=== PATIENT | male | born 1955 | race Caucasian/White ===

== ENCOUNTER 2018-09-28 05:19 | Emergency (ER) | payer OTHER ==
[~2018-09-28] VITALS: Ht 182.9 cm; Wt 104.3 kg
[~2018-09-28 05:19] MED LIST: ASA81 MG PO; ATORVASTATIN CA20 MG PO; BUPROPION HCL150 M2 PO; EFFIENT10 MG PO; LEXAPRO20 MG PO; Z.0.METOPROLOL SUCC2 PO; Z.0.PLAVIX75 MG; Z.0.RAMIPRIL2.5 MG PO; Z.0.VYTORIN 10-201 E; [UNRECOGNIZED DRUG - OTHER]
--- OUTSIDE RECORDS SUMMARY | 2018-09-28 05:23 | XMS REPORT | Summary of Care ---
Author Author [facility] Organization [facility] Address Unknown Phone Unavailable Encounter GARTH Fowler(ANAMIKA) [id number] Date(s): 04/15/16 - 04/17/16 [facility] [address] [place] [address]- Discharge Disposition: Home Attending Physician: Loc Callahan MD Admitting Physician: Loc Callahan MD Referring Physician: Loc Callahan MD Vital Signs 1 2 3 Most recent to oldest [Reference Range]: 182.88 cm (04/15/16 10:08 AM) Height 98.2 DegF (04/17/16 8:00 AM) 98.2 DegF (04/17/16 4:00 AM) 98.1 DegF (04/16/16 4:00 AM) Temperature Oral [96.4-99.1 DegF] 136/87 mmHg (04/17/16 8:00 AM) 132/59 mmHg (04/17/16 4:00 AM) 142/54 mmHg *HI* (04/17/16 12:00 AM) Blood Pressure [90-140/60-90 mmHg] 18 BRMIN (04/17/16 8:00 AM) 18 BRMIN (04/17/16 4:00 AM) 18 BRMIN (04/17/16 12:00 AM) Respiratory Rate [14-20 BRMIN] 75 bpm (04/17/16 8:00 AM) Peripheral Pulse Rate [60-100 bpm] 103.007 kg (04/15/16 4:28 PM) 107.273 kg (04/15/16 10:08 AM) Weight 32.07 m2 (04/15/16 10:08 AM) Body Mass Index Problem List Condition Effective Dates Status Health Status Informant CHF - Congestive Active heart failure(Confirmed) Depression(Confirmed Active ) Heart Active disease(Confirmed) Hypertension(Confirm Active ed) Sleep Active apnea(Confirmed) Allergies, Adverse Reactions, Alerts Substance Reaction Severity Status NKDA Active Medications acetaminophen-hydrocodone 325 mg-5 mg oral tablet 1 tab, Route: PO, Drug Form: TAB, Dosing Weight 107.273, kg, Q4H, PRN Pain Score 4-6, Start date: 04/15/16 15:14:00 CDT, Duration: 30 day, Stop date: 05/15/16 1 5:13:00 CDT Notes: (Same as: [place] 325/5) Do not exceed 4gm/day of acetaminophen. Start Date: 04/15/16 Stop Date: 04/17/16 Status: Discontinued ALPRAZOLam 0.5 mg oral tablet 0.5 mg, 1 tab, Route: PO, Drug form: TAB, ONCE, Dosing Weight 107.273, kg, Prior ity: NOW, Start date: 04/15/16 10:10:00 CDT, Stop date: 04/15/16 10:10:00 CDT Notes: With food or milk(Same as: Xanax) Start Date: 04/15/16 Stop Date: 04/15/16 Status: Completed alteplase 4 mg + Sodium Chloride 0.9% IV 100 mL 100 mL, Rate: 12.5 ml/hr, Infuse over: 8 hr, Route: INTRAARTERIAL, Dosing Weight 107.273 kg, Total Volume: 100, Start date: 04/15/16 13:00:00 CDT, Duration: 36 hr, Stop date: 04/17/16 0:59:00 CDT Notes: Stable for 8 hours only(Same as: Activase) MEDICATION WASTE P roduct Size: 2 mgProduct Wasted: ___ mg Start Date: 04/15/16 Stop Date: 04/16/16 Status: Discontinued aspirin buffered 325 mg oral tablet 325 mg=1 tab, PO, Daily, 0 Refill(s) Start Date: 04/17/16 Stop Date: 04/17/16 Status: Deleted aspirin buffered 325 mg oral tablet 325 mg, 1 tab, Route: PO, Drug form: TAB, Daily, Dosing Weight 107.273, kg, Star t date: 04/16/16 9:00:00 CDT, Duration: 30 day, Stop date: 05/15/16 9:00:00 CDT Notes: Take with food. Start Date: 04/16/16 Stop Date: 04/17/16 Status: Discontinued atorvastatin 40 mg, PO, Daily, 0 Refill(s) Start Date: 04/15/16 Stop Date: 04/17/16 Status: Deleted atorvastatin 40 mg, 1 tab, Route: PO, Drug form: TAB, Daily, Dosing Weight 107.273, kg, Start date: 04/16/16 9:00:00 CDT, Duration: 30 day, Stop date: 05/15/16 9:00:00 CDT Notes: (Same as: Lipitor) Start Date: 04/16/16 Stop Date: 04/17/16 Status: Discontinued atorvastatin 40 mg oral tablet 40 mg=1 tab, PO, Daily, 0 Refill(s) Start Date: 04/17/16 Status: Ordered atropine 0.5 mg, 5 mL, Route: IVP, Drug form: INJ, PRN, PRN Bradycardia, Start date: 07/25 0:37:00 CDT, Duration: 30 day, Stop date: 05/17/16 0:36:00 CDT Start Date: 04/17/16 Stop Date: 04/17/16 Status: Discontinued Benadryl 50 mg, 2 tab, Route: PO, Drug form: TAB, ONCE, Dosing Weight 107.273, kg, Priori ty: NOW, Start date: 04/15/16 10:10:00 CDT, Stop date: 04/15/16 10:10:00 CDT Start Date: 04/15/16 Stop Date: 04/15/16 Status: Completed Dilaudid 1 mg, 1 mL, Route: IV, Drug form: INJ, Q3H, Dosing Weight 107.273, kg, PRN Pain Score 7-10, Start date: 04/15/16 12:40:00 CDT, Duration: 30 day, Stop date: 05/24 12:39:00 CDT Start Date: 04/15/16 Stop Date: 04/17/16 Status: Discontinued Dulcolax Laxative 10 mg, 1 supp, Route: AR, Drug form: SUPP, Daily, Dosing Weight 103.007, kg, PRN Constipation, Start date: 04/16/16 12:05:00 CDT, Duration: 30 day, Stop date: 0 05/16/16 12:04:00 CDT Notes: (Same As: Dulcolax, Bisco-Lax) Start Date: 04/16/16 Stop Date: 04/17/16 Status: Discontinued Effient 10 mg oral tablet 10 mg=1 tab, PO, Daily, # 30 tab, 0 Refill(s) Start Date: 04/17/16 Status: Ordered heparin 5,000 unit, 1 mL, Route: SUB-Q, Drug form: INJ, Q8H, Dosing Weight 103.007, kg, Start date: 04/17/16 0:00:00 CDT, Duration: 30 day, Stop date: 05/16/16 16:00:00 CDT Notes: porcine heparin Start Date: 04/17/16 Stop Date: 04/17/16 Status: Discontinued heparin additive 25,000 unit [14 unit/kg/hr] + Premix Diluent Dextrose 5% 500 mL 500 mL, Rate: 25.05 ml/hr, Infuse over: 20 hr, Route: IV, Dosing Weight 89.47 kg , Total Volume: 500 mL, Start date: 04/15/16 12:38:00 CDT, Duration: 30 day, Sto p date: 05/15/16 12:37:00 CDT Start Date: 04/15/16 Stop Date: 04/16/16 Status: Discontinued Lexapro 20 mg, 2 tab, Route: PO, Drug form: TAB, Daily, Dosing Weight 107.273, kg, Start date: 04/16/16 9:00:00 CDT, Stop date: 05/15/16 9:00:00 CDT Notes: (Same as: Lexapro) Start Date: 04/16/16 Stop Date: 04/17/16 Status: Discontinued metoprolol extended release 25 mg, 1 tab, Route: PO, Drug form: ERTAB, Daily, Start date: 04/16/16 9:00:00 C DT, Duration: 30 day, Stop date: 05/15/16 9:00:00 CDT Notes: (Same as: Toprol XL) Do Not Crush Start Date: 04/16/16 Stop Date: 04/17/16 Status: Discontinued morphine Sulfate 4 mg, 2 mL, Route: IVP, Drug form: INJ, Q2H, Dosing Weight 107.273, kg, PRN Pain Score 7-10, Start date: 04/15/16 15:14:00 CDT, Duration: 30 day, Stop date: 05/24 15:13:00 CDT Notes: (Same as:MORPhine Sulfate) Start Date: 04/15/16 Stop Date: 04/17/16 Status: Discontinued nitroglycerin 0.4 mg sublingual tablet 0.4 mg, 1 tab, Route: SL, Drug form: TAB, Q5Min, PRN Chest Pain, Start date: 07/25 0:37:00 CDT, Duration: 30 day, Stop date: 05/17/16 0:36:00 CDT Notes: (Same as:Nitroquick, Nitrostat)"Do Not Crush" Sublingual tablet Start Date: 04/17/16 Stop Date: 04/17/16 Status: Discontinued nitroglycerin SL Tab 0.4 mg, 1 tab, Route: SL, Drug form: TAB, Q5Min, Dosing Weight 107.273, kg, PRN Chest Pain, Start date: 04/15/16 15:14:00 CDT, Duration: 3 doses or times, Stop date: Limited # of times Notes: (Same as:Nitroquick, Nitrostat)"Do Not Crush" Sublingual tablet Start Date: 04/15/16 Stop Date: 04/17/16 Status: Discontinued normal saline 0.9% IV 1,000 mL 1,000 mL, Rate: 100 ml/hr, Infuse over: 10 hr, Route: IV, Dosing Weight 107.273 kg, Total Volume: 1,000, Start date: 04/15/16 10:09:00 CDT, Duration: 30 day, St op date: 05/15/16 10:08:00 CDT Start Date: 04/15/16 Stop Date: 04/17/16 Status: Discontinued ondansetron 4 mg, 1 tab, Route: PO, Drug form: TAB, Q8H, Dosing Weight 107.273, kg, PRN Naus ea & Vomiting, Start date: 04/15/16 15:14:00 CDT, Duration: 30 day, Stop date: 05/15/16 15:13:00 CDT Notes: (Same as: Zomarciano) Start Date: 04/15/16 Stop Date: 04/17/16 Status: Discontinued Pepto-Bismol 524 mg, 2 tab, Route: PO, Drug Form: CHEWTAB, Dosing Weight 103.007, kg, QID, AR N Indigestion, Start date: 04/16/16 12:06:00 CDT, Duration: 30 day, Stop date: 0 05/16/16 12:05:00 CDT Notes: (Same As: Pepto Bismol) Start Date: 04/16/16 Stop Date: 04/17/16 Status: Discontinued Plavix 75 mg, 1 tab, Route: PO, Drug form: TAB, Daily, Dosing Weight 107.273, kg, Start date: 04/16/16 9:00:00 CDT, Duration: 30 day, Stop date: 05/15/16 9:00:00 CDT Notes: (Same As: Plavix) Start Date: 04/16/16 Stop Date: 04/17/16 Status: Discontinued pneumococcal 23-valent vaccine 0.5 mL, Route: IM, Drug Form: INJ, Daily, Start date: 04/16/16 9:00:00 CDT, Dura tion: 1 doses or times, Stop date: 04/16/16 9:00:00 CDT Notes: (Same as: Pneumovax 23) Refrigerate Start Date: 04/16/16 Stop Date: 04/16/16 Status: Completed ramipril 2.5 mg, 1 cap, Route: PO, Drug form: CAP, Daily, Dosing Weight 107.273, kg, Star t date: 04/16/16 9:00:00 CDT, Duration: 30 day, Stop date: 05/15/16 9:00:00 CDT Notes: (Same as:Altace) Start Date: 04/16/16 Stop Date: 04/17/16 Status: Discontinued simethicone 160 mg, 2 tab, Route: CHEW, Drug form: CHEWTAB, TID, Dosing Weight 103.007, kg, PRN Gas, Start date: 04/16/16 12:06:00 CDT, Duration: 30 day, Stop date: 6 12:05:00 CDT Notes: (Same as: Mylicon) Start Date: 04/16/16 Stop Date: 04/17/16 Status: Discontinued simethicone 80 mg, 1 tab, Route: PO, Drug form: CHEWTAB, Q8H, Dosing Weight 103.007, kg, PRN Other -See Comment, Start date: 04/16/16 13:03:00 CDT, Duration: 30 day, Stop d ate: 05/16/16 13:02:00 CDT Notes: (Same as: Mylicon) Start Date: 04/16/16 Stop Date: 04/17/16 Status: Discontinued Sodium Chloride 0.9% (Bolus) IV 250 mL, 250 ml/hr, Infuse Over: 1 hr, Route: IV, 250, Drug form: INJ, ONCE, Dosi ng Weight 107.273 kg, Start date: 04/15/16 15:14:00 CDT, Duration: 1 doses or ti mes, Stop date: 04/15/16 15:14:00 CDT Start Date: 04/15/16 Stop Date: 04/15/16 Status: Completed Sodium Chloride 0.9% IV 750 mL 750 mL, Rate: 75 ml/hr, Infuse over: 10 hr, Route: IV, Dosing Weight 107.273 kg, Total Volume: 750, Start date: 04/15/16 15:14:00 CDT, Duration: 10 hr, Stop marcin e: 04/16/16 1:13:00 CDT Start Date: 04/15/16 Stop Date: 04/16/16 Status: Completed temazepam 15 mg, 1 cap, Route: PO, Drug form: CAP, Bedtime, Dosing Weight 107.273, kg, PRN Insomnia, Start date: 04/15/16 15:14:00 CDT, Duration: 30 day, Stop date: 05/15 15:13:00 CDT Notes: (Same As: Restoril) Start Date: 04/15/16 Stop Date: 04/17/16 Status: Discontinued Results ELECTROLYTES 1 2 3 Most recent to oldest [Reference Range]: 139 mEq/L (04/17/16 9:43 AM) 138 mEq/L (04/16/16 5:44 AM) 138 mEq/L (04/15/16 10:10 AM) Sodium Lvl [135-145 mEq/L] 3.9 mEq/L (04/17/16 9:43 AM) 4.1 mEq/L (04/16/16 5:44 AM) 4.1 mEq/L (04/15/16 10:10 AM) Potassium Lvl [3.5-5.1 mEq/L] 105 mEq/L (04/17/16 9:43 AM) 107 mEq/L (04/16/16 5:44 AM) 108 mEq/L (04/15/16 10:10 AM) Chloride Lvl [95-109 mEq/L] 25 mEq/L (04/17/16 9:43 AM) 21 mEq/L *LOW* (04/16/16 5:44 AM) 23 mEq/L *LOW* (04/15/16 10:10 AM) CO2 [24-32 mEq/L] 12.9 mEq/L (04/17/16 9:43 AM) 14.1 mEq/L (04/16/16 5:44 AM) 11.1 mEq/L (04/15/16 10:10 AM) AGAP [10.0-20.0 mEq/L] CHEM PANEL 1 2 3 Most recent to oldest [Reference Range]: 0.68 mg/dL (04/17/16 9:43 AM) 0.64 mg/dL (04/16/16 5:44 AM) 0.92 mg/dL (04/15/16 10:10 AM) Creatinine Lvl [0.50-1.40 mg/dL] 104 mL/min/1.73m2 1 *NA* (04/17/16 9:43 AM) 107 mL/min/1.73m2 2 *NA* (04/16/16 5:44 AM) 91 mL/min/1.73m2 3 *NA* (04/15/16 10:10 AM) eGFR 11 mg/dL (04/17/16 9:43 AM) 12 mg/dL (04/16/16 5:44 AM) 13 mg/dL (04/15/16 10:10 AM) BUN [7-22 mg/dL] 143 mg/dL *HI* (04/17/16 9:43 AM) 105 mg/dL *HI* (04/16/16 5:44 AM) 102 mg/dL *HI* (04/15/16 10:10 AM) Glucose Lvl [70-99 mg/dL] 8.1 mg/dL *LOW* (04/17/16 9:43 AM) 8.0 mg/dL *LOW* (04/16/16 5:44 AM) 8.7 mg/dL (04/15/16 10:10 AM) Calcium Lvl [8.5-10.5 mg/dL] 1Result Comment: The eGFR is calculated using the CKD-EPI formula. In most young, healthy individuals the eGFR will be >90 mL/min/1.73m2. The eGFR declines with age. An eGFR of 60-89 may be normal in some populations, particularly the elderly, for whom the CKD-EPI formula has not been extensively validated. Use of the eGFR is not recommended in the following populations: Individuals with unstable creatinine concentrations, including patients and those with serious co-morbid conditions. Patients with extremes in muscle mass or diet. The data above are obtained from the National Kidney Disease Education Program ( NKDEP) which additionally recommends that when the eGFR is used in patients with extremes of body mass index for purposes of drug dosing, the eGFR should be mul tiplied by the estimated BMI. 2Result Comment: The eGFR is calculated using the CKD-EPI formula. In most young, healthy individuals the eGFR will be >90 mL/min/1.73m2. The eGFR declines with age. An eGFR of 60-89 may be normal in some populations, particularly the elderly, for whom the CKD-EPI formula has not been extensively validated. Use of the eGFR is not recommended in the following populations: Individuals with unstable creatinine concentrations, including patients and those with serious co-morbid conditions. Patients with extremes in muscle mass or diet. The data above are obtained from the National Kidney Disease Education Program ( NKDEP) which additionally recommends that when the eGFR is used in patients with extremes of body mass index for purposes of drug dosing, the eGFR should be mul tiplied by the estimated BMI. 3Result Comment: The eGFR is calculated using the CKD-EPI formula. In most young, healthy individuals the eGFR will be >90 mL/min/1.73m2. The eGFR declines with age. An eGFR of 60-89 may be normal in some populations, particularly the elderly, for whom the CKD-EPI formula has not been extensively validated. Use of the eGFR is not recommended in the following populations: Individuals with unstable creatinine concentrations, including patients and those with serious co-morbid conditions. Patients with extremes in muscle mass or diet. The data above are obtained from the National Kidney Disease Education Program ( NKDEP) which additionally recommends that when the eGFR is used in patients with extremes of body mass index for purposes of drug dosing, the eGFR should be mul tiplied by the estimated BMI. LIPIDS 1 2 3 Most recent to oldest [Reference Range]: 5.07 (04/15/16 10:10 AM) CHD Risk [4.00-7.30] 147 mg/dL (04/15/16 10:10 AM) Chol [<=199 mg/dL] 130 mg/dL (04/15/16 10:10 AM) Trig [<=149 mg/dL] 29 mg/dL *LOW* (04/15/16 10:10 AM) HDL [>=61 mg/dL] 92 mg/dL (04/15/16 10:10 AM) LDL (Calculated) [<=99 mg/dL] 26 *NA* (04/15/16 10:10 AM) VLDL HEMATOLOGY 1 2 3 Most recent to oldest [Reference Range]: 9.3 K/CMM (04/17/16 9:43 AM) 9.6 K/CMM (04/17/16 9:43 AM) 10.4 K/CMM (04/16/16 5:44 AM) WBC [3.7-10.4 K/CMM] 5.32 M/CMM (04/17/16 9:43 AM) 5.32 M/CMM (04/17/16 9:43 AM) 5.70 M/CMM (04/16/16 5:44 AM) RBC [4.70-6.10 M/CMM] 15.7 g/dL (04/17/16 9:43 AM) 15.7 g/dL (04/17/16 9:43 AM) 16.9 g/dL (04/16/16 5:44 AM) Hgb [14.0-18.0 g/dL] 46.7 % (04/17/16 9:43 AM) 46.8 % (04/17/16 9:43 AM) 49.8 % (04/16/16 5:44 AM) Hct [42.0-54.0 %] 87.8 fL (6/9/16 9:43 AM) 88.0 fL (04/17/16 9:43 AM) 87.4 fL (04/16/16 5:44 AM) MCV [80.0-94.0 fL] 29.4 pg (04/17/16 9:43 AM) 29.5 pg (04/17/16 9:43 AM) 29.6 pg (04/16/16 5:44 AM) MCH [27.0-31.0 pg] 33.5 g/dL (04/17/16 9:43 AM) 33.6 g/dL (04/17/16 9:43 AM) 33.8 g/dL (04/16/16 5:44 AM) MCHC [32.0-36.0 g/dL] 13.5 % (04/17/16 9:43 AM) 13.4 % (04/17/16 9:43 AM) 13.6 % (04/16/16 5:44 AM) RDW [11.5-14.5 %] 119 K/CMM *LOW* (04/17/16 9:43 AM) 112 K/CMM *LOW* (04/17/16 9:43 AM) 125 K/CMM *LOW* (04/16/16 5:44 AM) Platelet [133-450 K/CMM] 9.0 fL (04/17/16 9:43 AM) 8.8 fL (04/17/16 9:43 AM) 8.4 fL (04/16/16 5:44 AM) MPV [7.4-10.4 fL] 79.0 % *HI* (04/17/16 9:43 AM) 73.4 % (04/16/16 5:44 AM) 62.2 % (04/15/16 6:50 PM) Segs [45.0-75.0 %] 13.4 % *LOW* (04/17/16 9:43 AM) 18.5 % *LOW* (04/16/16 5:44 AM) 29.7 % (04/15/16 6:50 PM) Lymphocytes [20.0-40.0 %] 6.9 % (04/17/16 9:43 AM) 6.6 % (04/16/16 5:44 AM) 6.0 % (04/15/16 6:50 PM) Monocytes [2.0-12.0 %] 0.4 % (04/17/16 9:43 AM) 0.8 % (04/16/16 5:44 AM) 1.1 % (04/15/16 6:50 PM) Eosinophils [0.0-4.0 %] 0.3 % (04/17/16 9:43 AM) 0.7 % (04/16/16 5:44 AM) 1.0 % (04/15/16 6:50 PM) Basophils [0.0-1.0 %] 7.4 K/CMM (04/17/16 9:43 AM) 7.7 K/CMM (04/16/16 5:44 AM) 5.6 K/CMM (04/15/16 6:50 PM) Segs-Bands # [1.5-8.1 K/CMM] 1.2 K/CMM (04/17/16 9:43 AM) 1.9 K/CMM (04/16/16 5:44 AM) 2.7 K/CMM (04/15/16 6:50 PM) Lymphocytes # [1.0-5.5 K/CMM] 0.6 K/CMM (04/17/16 9:43 AM) 0.7 K/CMM (04/16/16 5:44 AM) 0.5 K/CMM (04/15/16 6:50 PM) Monocytes # [0.0-0.8 K/CMM] 0.1 K/CMM (04/16/16 5:44 AM) 0.1 K/CMM (04/15/16 6:50 PM) 0.1 K/CMM (04/15/16 10:10 AM) Eosinophils # [0.0-0.5 K/CMM] 0.1 K/CMM (04/16/16 5:44 AM) 0.1 K/CMM (04/15/16 6:50 PM) 0.2 K/CMM (04/15/16 10:10 AM) Basophils # [0.0-0.2 K/CMM] 14.8 seconds *HI* (04/15/16 6:50 PM) PT [12.0-14.7 seconds] 1.13 (04/15/16 6:50 PM) INR [0.85-1.17] 57.5 seconds *HI* (04/16/16 5:44 AM) 59.6 seconds *HI* (04/16/16 2:10 AM) 93.2 seconds *HI* (04/15/16 6:50 PM) PTT [22.9-35.8 seconds] BACTERIAL - SEROLOGY 1 2 3 Most recent to oldest [Reference Range]: Negative (04/15/16 6:07 PM) MRSA by PCR Immunizations Not Given Vaccine Date Status Refusal Reason pneumococcal 23-valent vaccine 04/17/16 Not Given Patient Refuses Procedures Procedure Date Related Diagnosis Body Site Arthroscopic knee operation CABG - Coronary artery bypass graft Cardiac catheterization, left heart1 Extraction of wisdom tooth Foot incision ICD - Internal cardiac defibrillator procedure 1with stent x 4 last nov 2014 Social History Social History Type Response Smoking Status Current every day smoker; Type: Cigarettes; Tobacco use per day: 20; Previous treatment: None; Ready to change: No; Concerns about tobacco use in household: No; Exposure to Tobacco Smoke smokes daily; Cigarette Smoking Last 365 Days Yes; Reg Smoking Cessation Counseling Yes Assessment and Plan Extracted from: Title: Clinical Document Author: Crystal Maxwell Date: 04/17/16 Pulmonary/Critical Care Medicine progess note Crystal Maxwell MS AGACNP-BC SUBJECTIVE: seen and examined, pt awake and preparing for discharge, no s/sdistress, uses cpap at home events and records noted OBJECTIVE: ROS: Denies N/V/D, CP or SOB remainder of 14 point assessment otherwise negative ASSESSMENT & EXAM: NEURO: alert and oriented, no s/s distress HEENT:normocephalic,atraumatic, PERRLA NECK: supple, no JVD appreciated PULM: symmetrical expansion, CTA CV: RRR, S1,S2, no murmurs, gallops or clicks ascultated ABD: Soft, nontender, (+)bowel sounds EXTREMITIES: no edema, pulses palpable INTEGUMENTARY: intact, no rashes DIAGNOSES & PROBLEMS: PAD w/ critical limb ischemia of RLE: s/p thrombolysis and stent placement Abd pain CAD h/o CABG ICM CORINE tobacco abuse PLAN & TREATMENT: pt on dual antiplatelet therapy, statin BB and KAYLENE simethicone prn for abd discomfort ABD CT benign smolking cessationrecommended advised pt to follow -up with own pulmonolgist VitalsTmp(F)[id number] 04/17 08:8.682175/260020--- 04/17 04:0098.709288/[id number]--- 04/17 00:0097.700810/5418--- 2.0L/m 04/16 23:42----64-----1896--- 04/16 23:00----[id number]--- 24 Hr Tmax: 98.2F (36.78c) at 04/17 08:00Vital Signs are the last 5 in the past 48 hours. DateWt(kg)Wt(lb)Ht(cm)Ht(in)Method 04/15 (initial)107.27 236.00Measured 04/15182.88 72.00Stated Lines, Tubes, and Drains: 04/15/2016 20:00 Peripheral Lines: Antecubital Left Over the needle catheter 04/15/2016 16:00 Arterial Lines: Single lumen Femoral artery Left 3 gauge I&ORecordInOutBal 04/924hr Tot 240 700 -460 04/824hr Tot 2353 1700 653 Surgical Procedures: (no date)Atherectomy/CSI Rt Lower Extremity [id number](primary surgeon unspecified) (no date)ABDOMINAL ANGIO/ FEM-POP/ ILIAC TOOL MAKER APPRENTICE [id number](primary surgeon unspecified) 04/17/2016 08:00 SpO2 [id number] 04/17/2016 00:00 Oxygen Therapy ModeNasal cannula Scheduled Meds: None Unscheduled Meds: None Continuous Infusions: None Labs (Last four charted values) WBC 9.6(APR 17)9.3(APR 17)10.4(APR 16)9.1(APR 15) Hgb 15.7(APR 17)15.7(APR 17)16.9(APR 16)16.8(APR 15) Hct 46.7(APR 17)46.8(APR 17)49.8(APR 16)51.6(MARCELO 07) Plt L 119(APR 09)L 112(APR 09)L 125(APR 08)137(APR 07) Na 139(APR 09)138(APR 08)138(APR 07) K 3.9(APR 09)4.1(APR 08)4.1(APR 07) CO2 25(APR 09)L 21(APR 08)L 23(APR 07) Cl 105(APR 09)107(APR 08)108(APR 07) Cr 0.68(APR 17)0.64(APR 16)0.92(APR 15) BUN 11(APR 17)12(APR 16)13(APR 15) Glucose Random H 143(APR 17)H 105(APR 08)H 102(APR 07) Ca L 8.1(APR 17)L 8.0(APR 16)8.7(APR 15) PT H 14.8(APR 15) INR 1.13(APR 15) PTT H 57.5(APR 16)H 59.6(APR 16)H 93.2(APR 15) Addendum I have seen and examined the patient with the TEST RIDER and the multidisciplinary team, I have by reviewed labs, radiological test, overnight events. I agree with the note Link, followup with Dr Asia Morley MD on 04/17/2016 17:52 Extracted from: Title: ICU care Author: Shae Pérez DO Date: 04/16/16 Chief complaint: leg ischemia HPI: 61 y.o. male presented with sevral days of right lower extremity pain.The patient thought that he had sprained his calf, but also admitted to his toes turning blue and his leg feeling cold. The patient was found to have acute artreial occlusion and was admitted for intervetion. Yesterday he went for an arteriogram and received overnight TPA. He went for a stent today. He complained of some abdominal pain post procedure. CT abd and pelvis did not reveal any retroperitoneal bleeding. Cramping was relieved with simethicone. Patient has a significant of CAD with CABG and ICM. PMHx: CAD, dyslipidemia, ICM, PVD PSHx: mary, CABG, AICD, knee replacement Famhx: both parents from multiple myeloma Sochx: active tobacco use, denies exessive etoh or drugs Meds: reviewed and documented in the EMR Allergies: NKDA ROS: all reviewed and negative besides pertinent positives documented in the HPI Physical exam VitalsTmp(F)[id number] 04/16 19:00----[id number]--- 04/16 18:00----[id number]--- 04/16 17:00----[id number]--- 04/16 16:0097.947793/981048--- 04/16 15:00----[id number]--- 24 Hr Tmax: 98.1F (36.72c) at 04/16 04:00Vital Signs are the last 5 in the past 48 hours. Gen: NAD HEENT: no JVD, neck supple Neuro: AOX3, nonlateralzing Cardio: [id number] Pulm: LCTAB Abd: S/NT/ND Ext: no cyanosis or edema, palpable pulses b/l lower extremities 24hr Labs 04/16 0544 Glucose Lzm170 H BUN12 Creatinine Lvl0.64 Sodium Jna868 Potassium Lvl4.1 Chloride Joa248 CO221 L AGAP14.1 Calcium Lvl8.0 L aYXA823 WBC10.4 RBC5.70 Hgb16.9 Hct49.8 MCV87.4 MCH29.6 MCHC33.8 RDW13.6 Onbacpxb024 L MPV8.4 Segs73.4 Monocytes6.6 Gdtkgvwmmlj04.5 L Eosinophils0.8 Basophils0.7 Segs-Bands #7.7 Lymphocytes #1.9 Monocytes #0.7 Eosinophils #0.1 Basophils #0.1 PTT57.5 H 04/16 0210 PTT59.6 H 04/15 1807 MRSA by PCRNegative Impression 1.Peripheral arterial disease w/ critical limb ischemia of the RLE s/p thrombolysis and stent placement 2. Abd pain 3. CAD h/o CABG 4. ICM Plan -cont ICU care -dual antiplatelet therapy, statin, Bblocker, KAYLENE -prophylactic measures -simethicone prn for abd cramping -anticipate transfer to [facility] in am CCM time exclusive of procedures is 36 min
--- OUTSIDE RECORDS SUMMARY | 2018-09-28 05:23 | XMS REPORT | Summary of Care ---
Author Organization Unknown Address Unknown Phone Unavailable Encounter HQ Annabel_katarina(ANAMIKA) [id number] Date(s): 03/16/15 - 03/17/15 Formerly [facility] [address] [place] [address]- Discharge Disposition: Home Physician Attending: Rachel Grissom MD Physician Admitting: Rachel Grissom MD Physician_Referring: Rachel Grissom MD Vital Signs 1 2 3 Most recent to oldest [Reference Range]: 182.88 cm (03/16/15 10:46 PM) 182.88 cm (03/16/15 2:24 PM) Height 98.5 DegF (03/17/15 11:56 AM) 98.4 DegF (03/17/15 7:39 AM) 98.0 DegF (03/17/15 4:00 AM) Temperature Oral [96.4-99.1 DegF] 146/84 mmHg *HI* (03/17/15 11:56 AM) 137/74 mmHg (03/17/15 7:39 AM) 130/82 mmHg (03/17/15 4:00 AM) Blood Pressure [90-140/60-90 mmHg] 20 BRMIN (03/17/15 11:56 AM) 16 BRMIN (03/17/15 8:47 AM) 18 BRMIN (03/17/15 7:39 AM) Respiratory Rate [14-20 BRMIN] 66 bpm (03/17/15 11:56 AM) 60 bpm (03/17/15 7:39 AM) 78 bpm (03/17/15 4:00 AM) Peripheral Pulse Rate [60-100 bpm] 104.545 kg (03/16/15 10:46 PM) 105 kg (03/16/15 2:24 PM) Weight 31.26 m2 (03/16/15 10:46 PM) 31.39 m2 (03/16/15 2:24 PM) Body Mass Index Problem List Condition Effective Dates Status Health Status Informant Depression(Confirmed Active ) Heart Active disease(Confirmed) Hypertension(Confirm Active ed) Sleep Active apnea(Confirmed) Allergies, Adverse Reactions, Alerts Substance Reaction Severity Status NKDA Active Medications acetaminophen 325 mg, 1 tab, Route: PO, Drug form: TAB, Q4H, Dosing Weight 105, kg, PRN Pain S core 4-6, Start date: 03/16/15 17:04:00, Duration: 30 day, Stop date: 04/15/15 1 7:03:00 Notes: Do not exceed 4 gm/day. (Same as: Tylenol) Start Date: 03/16/15 Stop Date: 03/17/15 Status: Discontinued acetaminophen-codeine #3 1 tab, Route: PO, Drug Form: TAB, Dosing Weight 105, kg, Q4H, PRN Pain Score 4-6 , Start date: 03/16/15 17:04:00, Duration: 30 day, Stop date: 04/15/15 17:03:00 Notes: Do not exceed 4gm/day of acetaminophen. (Same as: Tylenol with Codeine # 3) Start Date: 03/16/15 Stop Date: 03/17/15 Status: Discontinued aspirin buffered 325 mg oral tablet 325 mg, 1 tab, Route: PO, Drug form: TAB, Daily, Dosing Weight 105, kg, Start da te: 03/17/15 9:00:00, Duration: 30 day, Stop date: 04/15/15 9:00:00 Notes: Take with food. Start Date: 03/17/15 Stop Date: 03/17/15 Status: Discontinued aspirin buffered 325 mg oral tablet 325 mg=1 tab, PO, Daily, # 30 tab, 0 Refill(s) Start Date: 03/15/15 Stop Date: 04/14/15 Status: Ordered atropine 0.5 mg, 5 mL, Route: IVP, Drug form: INJ, PRN, PRN Bradycardia, Start date: 06/23 19:57:00, Duration: 30 day, Stop date: 04/15/15 19:56:00 Start Date: 03/16/15 Stop Date: 03/17/15 Status: Discontinued ezetimibe-simvastatin 08/18 1 tab, Route: PO, Dosing Weight 105, kg, Bedtime, Start date: 03/16/15 21:00:00, Duration: 30 day, Stop date: 04/14/15 21:00:00 Start Date: 03/16/15 Stop Date: 03/16/15 Status: Deleted Lexapro 20 mg, 1 tab, Route: PO, Drug form: TAB, Daily, Dosing Weight 105, kg, Start marcin e: 03/17/15 9:00:00, Duration: 30 day, Stop date: 04/15/15 9:00:00 Notes: (Same as: Lexapro) Start Date: 03/17/15 Stop Date: 03/17/15 Status: Discontinued Lexapro 20 mg oral tablet 20 mg=1 tab, PO, Daily, # 30 tab, 0 Refill(s) Start Date: 03/15/15 Status: Ordered metoprolol 25 mg oral tablet, extended release 25 mg, PO, Daily, # 30 tab, 0 Refill(s) Start Date: 03/15/15 Stop Date: 04/14/15 Status: Ordered nitroglycerin 0.4 mg sublingual tablet 0.4 mg, 1 tab, Route: SL, Drug form: TAB, Q5Min, PRN Chest Pain, Start date: 06/23 19:57:00, Duration: 30 day, Stop date: 04/15/15 19:56:00 Notes: (Same as:Nitroquick, Nitrostat)"Do Not Crush" Sublingual tablet Start Date: 03/16/15 Stop Date: 03/17/15 Status: Discontinued ondansetron 4 mg, 2 mL, Route: IVP, Drug form: INJ, Q8H, Dosing Weight 105, kg, PRN Nausea & Vomiting, Start date: 03/16/15 17:04:00, Duration: 30 day, Stop date: 04/15/15 17:03:00 Notes: (Same as: Karina) MEDICATION WASTE Product Size: 4 mgProduct Was luis alberto: ___ mg Start Date: 03/16/15 Stop Date: 03/17/15 Status: Discontinued Plavix 75 mg, 1 tab, Route: PO, Drug form: TAB, Daily, Dosing Weight 105, kg, Start marcin e: 03/17/15 9:00:00, Duration: 30 day, Stop date: 04/15/15 9:00:00 Notes: (Same As: Plavix) Start Date: 03/17/15 Stop Date: 03/17/15 Status: Discontinued Plavix 75 mg oral tablet 75 mg=1 tab, PO, Daily, # 30 tab, 0 Refill(s) Start Date: 03/15/15 Status: Ordered ramipril 2.5 mg, 1 cap, Route: PO, Drug form: CAP, Daily, Dosing Weight 105, kg, Start da te: 03/17/15 9:00:00, Duration: 30 day, Stop date: 04/15/15 9:00:00 Notes: (Same as:Altace) Start Date: 03/17/15 Stop Date: 03/17/15 Status: Discontinued ramipril 2.5 mg oral capsule 2.5 mg=1 cap, PO, Daily, # 30 cap, 0 Refill(s) Start Date: 03/15/15 Status: Ordered Toprol-XL 25 mg oral tablet, extended release 25 mg, 1 tab, Route: PO, Drug form: ERTAB, Daily, Start date: 03/17/15 9:00:00, Duration: 30 day, Stop date: 04/15/15 9:00:00 Notes: (Same as: Toprol XL) Do Not Crush Start Date: 03/17/15 Stop Date: 03/17/15 Status: Discontinued vancomycin 1 gm, 200 mL, Route: IVPB, Drug form: INJ, ONCE, Dosing Weight 105, kg, Start da te: 03/16/15 17:04:00, Stop date: 03/16/15 17:04:00 Start Date: 03/16/15 Stop Date: 03/16/15 Status: Completed Vytorin 10 mg-20 mg oral tablet 1 tab, PO, Daily, # 30 tab, 0 Refill(s) Start Date: 03/15/15 Status: Ordered Zetia 10 mg, 1 tab, Route: PO, Drug form: TAB, Bedtime, Start date: 03/16/15 21:00:00, Duration: 30 day, Stop date: 04/14/15 21:00:00 Notes: (Same as: Zetia) Start Date: 03/16/15 Stop Date: 03/17/15 Status: Discontinued Zocor 10 mg, 1 tab, Route: PO, Drug form: TAB, Bedtime, Start date: 03/16/15 21:00:00, Duration: 30 day, Stop date: 04/14/15 21:00:00 Notes: (Same as: Zocor) Start Date: 03/16/15 Stop Date: 03/17/15 Status: Discontinued Results ELECTROLYTES Most recent to 1 oldest [Reference Range]: Sodium Lvl [135-145 141 mEq/L mEq/L] (03/16/15 2:32 PM) Potassium Lvl 4.0 mEq/L [3.5-5.1 mEq/L] (03/16/15 2:32 PM) Chloride Lvl [95-109 109 mEq/L mEq/L] (03/16/15 2:32 PM) CO2 [24-32 mEq/L] 26 mEq/L (03/16/15 2:32 PM) AGAP [10.0-20.0 10.0 mEq/L mEq/L] (03/16/15 2:32 PM) CHEM PANEL Most recent to 1 oldest [Reference Range]: Creatinine Lvl 0.8 mg/dL [0.5-1.4 mg/dL] (03/16/15 2:32 PM) eGFR 99 mL/min/1.73m2 1 *NA* (03/16/15 2:32 PM) BUN [7-22 mg/dL] 12 mg/dL (03/16/15 2:32 PM) Glucose Lvl [70-99 95 mg/dL 2 mg/dL] (03/16/15 2:32 PM) Calcium Lvl 8.6 mg/dL [8.5-10.5 mg/dL] (03/16/15 2:32 PM) 1Result Comment: The eGFR is calculated using [...] be mul tiplied by the estimated BMI. 2Interpretive Data: Adult reference range values reflect the clinical guidelines of the [place] [employer]. HEMATOLOGY Most recent to 1 oldest [Reference Range]: WBC [3.7-10.4 K/CMM] 7.0 K/CMM (03/16/15 2:32 PM) RBC [4.70-6.10 5.30 M/CMM M/CMM] (03/16/15 2:32 PM) Hgb [14.0-18.0 g/dL] 16.7 g/dL (03/16/15 2:32 PM) Hct [42.0-54.0 %] 48.5 % (03/16/15 2:32 PM) MCV [80.0-94.0 fL] 91.5 fL (03/16/15 2:32 PM) MCH [27.0-31.0 pg] 31.5 pg *HI* (03/16/15 2:32 PM) MCHC [32.0-36.0 34.4 g/dL g/dL] (03/16/15 2:32 PM) RDW [11.5-14.5 %] 12.9 % (03/16/15 2:32 PM) Platelet [133-450 124 K/CMM K/CMM] *LOW* (03/16/15 2:32 PM) MPV [7.4-10.4 fL] 8.1 fL (03/16/15 2:32 PM) Segs [45.0-75.0 %] 60.7 % (03/16/15 2:32 PM) Lymphocytes 30.4 % [20.0-40.0 %] (03/16/15 2:32 PM) Monocytes [2.0-12.0 6.5 % %] (03/16/15 2:32 PM) Eosinophils [0.0-4.0 1.4 % %] (03/16/15 2:32 PM) Basophils [0.0-1.0 1.0 % %] (03/16/15 2:32 PM) Segs-Bands # 4.3 K/CMM [1.5-8.1 K/CMM] (03/16/15 2:32 PM) Lymphocytes # 2.1 K/CMM [1.0-5.5 K/CMM] (03/16/15 2:32 PM) Monocytes # [0.0-0.8 0.5 K/CMM K/CMM] (03/16/15 2:32 PM) Eosinophils # 0.1 K/CMM [0.0-0.5 K/CMM] (03/16/15 2:32 PM) Basophils # [0.0-0.2 0.1 K/CMM K/CMM] (03/16/15 2:32 PM) PT [12.0-14.7 13.2 seconds seconds] (03/16/15 2:32 PM) INR [0.85-1.17] 1.00 3 (03/16/15 2:32 PM) PTT [22.9-35.8 31.0 seconds 4 seconds] (03/16/15 2:32 PM) 3Interpretive Data: RECOMMENDED RANGES FOR PROTIME INR: 2.0-3.0 for most medical and surgical thromboembolic states. 2.5-3.5 for artificial heart valves and recurrent embolism. INR SHOULD BE USED ONLY FOR PATIENTS ON STABLE ANTICOAGULANT THERAPY. 4Interpretive Data: Heparin Therapeutic Range: 57 - 92 Seconds Immunizations No data available for this section Procedures Procedure Date Related Diagnosis Body Site Arthroscopic knee operation CABG - Coronary artery bypass graft Cardiac catheterization, left heart1 Extraction of wisdom tooth Foot incision 1with stent x 4 last nov 2014 Social History Social History Type Response Smoking Status Current every day smoker; Exposure to Tobacco Smoke smokes daily; Cigarette Smoking Last 365 Days Yes; Reg Smoking Cessation Counseling No Assessment and Plan No data available for this section
--- OUTSIDE RECORDS SUMMARY | 2018-09-28 05:23 | XMS REPORT | Continuity of Care Document ---
Author Author [facility] Interface Address Unknown Phone Unavailable Problems Problem Status Onset Date Classification Date Reported Comments Source I73.9 Active 2016 [facility] I73.9 Active 2016 [facility] 414.8/428.22/462.52/414.02 Active 03/06/2015 [facility] SYNCOPE AND BRADYCARDIA Active 03/06/2015 [facility] 414.8/428.22/462.52/414.02 Active 03/06/2015 [facility] Depression Active Problem 04/20/2016 [facility] Heart disease Active Problem 04/20/2016 [facility] Hypertension Active Problem 04/20/2016 [facility] Sleep apnea Active Problem 04/20/2016 [facility] CHF - Congestive heart failure Active Problem 04/20/2016 [facility] PERIPHERAL VASCULAR DISEASE, UNSPECIFIED Active [facility] Medications Medication Details Route Status Patient Instructions Ordering Provider Order Date Source atorvastatin 40 mg oral tablet 40 mg=1 tab, PO, Daily, 0 Refill(s) Active 04/17/2016 [facility] Aspirin 325 MG Oral Tablet 325 mg=1 tab, PO, Daily, 0 Refill(s) Inactive 04/17/2016 [facility] prasugrel 10 MG Oral Tablet [Effient] 10 mg=1 tab, PO, Daily, # 30 tab, 0 Refill(s) Active 04/17/2016 [facility] nitroglycerin 0.4 mg sublingual tablet 0.4 mg, 1 tab, Route: SL, Drug form: TAB, Q5Min, PRN Chest Pain, Start date: 04/17/16 0:37:00 CDT, Duration: 30 day, Stop date: 05/17/16 0:36:00 CDTNotes: (Same as:Nitroquick, Nitrostat) "Do Not Crush" Sublingual tablet Inactive 04/17/2016 [facility] atropine 0.5 mg, 5 mL, Route: IVP, Drug form: INJ, PRN, PRN Bradycardia, Start date: 04/17/16 0:37:00 CDT, Duration: 30 day, Stop date: 05/17/16 0:36:00 CDT Inactive 04/17/2016 [facility] heparin 5,000 unit, 1 mL, Route: SUB-Q, Drug form: INJ, Q8H, Dosing Weight 103.007, kg, Start date: 04/17/16 0:00:00 CDT, Duration: 30 day, Stop date: 05/16/16 16:00:00 CDTNotes: porcine heparin Inactive 04/17/2016 [facility] Simethicone 80 mg, 1 tab, Route: PO, Drug form: CHEWTAB, Q8H, Dosing Weight 103.007, kg, PRN Other -See Comment, Start date: 04/16/16 13:03:00 CDT, Duration: 30 day, Stop date: 05/16/16 13:02:00 CDTNotes: (Same as: Mylicon) No Longer Active 04/16/2016 [facility] Simethicone 160 mg, 2 tab, Route: CHEW, Drug form: CHEWTAB, TID, Dosing Weight 103.007, kg, PRN Gas, Start date: 04/16/16 12:06:00 CDT, Duration: 30 day, Stop date: 05/16/16 12:05:00 CDTNotes: (Same as: Mylicon) No Longer Active 04/16/2016 [facility] Pepto-bismol 524 mg, 2 tab, Route: PO, Drug Form: CHEWTAB, Dosing Weight 103.007, kg, QID, PRN Indigestion, Start date: 04/16/16 12:06:00 CDT, Duration: 30 day, Stop date: 05/16/16 12:05:00 CDTNotes: (Same As: Pepto Bismol) No Longer Active 04/16/2016 [facility] Dulcolax Laxative 10 mg, 1 supp, Route: AK, Drug form: SUPP, Daily, Dosing Weight 103.007, kg, PRN Constipation, Start date: 04/16/16 12:05:00 CDT, Duration: 30 day, Stop date: 05/16/16 12:04:00 CDTNotes: (Same As: Dulcolax, Bisco-Lax) No Longer Active 04/16/2016 [facility] pneumococcal capsular polysaccharide type 1 vaccine / pneumococcal capsular polysaccharide type 10A vaccine / pneumococcal capsular polysaccharide type 11A vaccine / pneumococcal capsular polysaccharide type 12F vaccine / pneumococcal capsular polysacchar 0.5 mL, Route: IM, Drug Form: INJ, Daily, Start date: 04/16/16 9:00:00 CDT, Duration: 1 doses or times, Stop date: 04/16/16 9:00:00 CDTNotes: (Same as: Pneumovax 23) Refrigerate Inactive 04/16/2016 [facility] Aspirin 325 MG Oral Tablet 325 mg, 1 tab, Route: PO, Drug form: TAB, Daily, Dosing Weight 107.273, kg, Start date: 04/16/16 9:00:00 CDT, Duration: 30 day, Stop date: 05/15/16 9:00:00 CDTNotes: Take with food. No Longer Active 04/16/2016 [facility] Ramipril 2.5 mg, 1 cap, Route: PO, Drug form: CAP, Daily, Dosing Weight 107.273, kg, Start date: 04/16/16 9:00:00 CDT, Duration: 30 day, Stop date: 05/15/16 9:00:00 CDTNotes: (Same as:Altace) No Longer Active 04/16/2016 [facility] metoprolol extended release 25 mg, 1 tab, Route: PO, Drug form: ERTAB, Daily, Start date: 04/16/16 9:00:00 CDT, Duration: 30 day, Stop date: 05/15/16 9:00:00 CDTNotes: (Same as: Toprol XL) Do Not Crush No Longer Active 04/16/2016 [facility] Lexapro 20 mg, 2 tab, Route: PO, Drug form: TAB, Daily, Dosing Weight 107.273, kg, Start date: 04/16/16 9:00:00 CDT, Stop date: 05/15/16 9:00:00 CDTNotes: (Same as: Lexapro) No Longer Active 04/16/2016 [facility] Plavix 75 mg, 1 tab, Route: PO, Drug form: TAB, Daily, Dosing Weight 107.273, kg, Start date: 04/16/16 9:00:00 CDT, Duration: 30 day, Stop date: 05/15/16 9:00:00 CDTNotes: (Same As: Plavix) No Longer Active 04/16/2016 [facility] atorvastatin 40 mg, 1 tab, Route: PO, Drug form: TAB, Daily, Dosing Weight 107.273, kg, Start date: 04/16/16 9:00:00 CDT, Duration: 30 day, Stop date: 05/15/16 9:00:00 CDTNotes: (Same as: Lipitor) No Longer Active 04/16/2016 [facility] Temazepam 15 mg, 1 cap, Route: PO, Drug form: CAP, Bedtime, Dosing Weight 107.273, kg, PRN Insomnia, Start date: 04/15/16 15:14:00 CDT, Duration: 30 day, Stop date: 05/15/16 15:13:00 CDTNotes: (Same As: Restoril) No Longer Active 04/15/2016 [facility] Ondansetron 4 mg, 1 tab, Route: PO, Drug form: TAB, Q8H, Dosing Weight 107.273, kg, PRN Nausea & Vomiting, Start date: 04/15/16 15:14:00 CDT, Duration: 30 day, Stop date: 05/15/16 15:13:00 CDTNotes: (Same as: Zofran) No Longer Active 04/15/2016 [facility] Acetaminophen 325 MG / Hydrocodone Bitartrate 5 MG Oral Tablet 1 tab, Route: PO, Drug Form: TAB, Dosing Weight 107.273, kg, Q4H, PRN Pain Score 4-6, Start date: 04/15/16 15:14:00 CDT, Duration: 30 day, Stop date: 05/15/16 15:13:00 CDTNotes: (Same as: [place] 325/5) Do not exceed 4gm/day of acetaminophen. No Longer Active 04/15/2016 [facility] Morphine 4 mg, 2 mL, Route: IVP, Drug form: INJ, Q2H, Dosing Weight 107.273, kg, PRN Pain Score 7-10, Start date: 04/15/16 15:14:00 CDT, Duration: 30 day, Stop date: 05/15/16 15:13:00 CDTNotes: (Same as:MORPhine Sulfate) No Longer Active 04/15/2016 [facility] Nitroglycerin 0.4 mg, 1 tab, Route: SL, Drug form: TAB, Q5Min, Dosing Weight 107.273, kg, PRN Chest Pain, Start date: 04/15/16 15:14:00 CDT, Duration: 3 doses or times, Stop date: Limited # of timesNotes: (Same as :Nitroquick, Nitrostat) "Do Not Crush" Sublingual tablet No Longer Active 04/15/2016 [facility] Sodium Chloride 0.154 MEQ/ML Injectable Solution 250 mL, 250 ml/hr, Infuse Over: 1 hr, Route: IV, 250, Drug form: INJ, ONCE, Dosing Weight 107.273 kg, Start date: 04/15/16 15:14:00 CDT, Duration: 1 doses or times, Stop date: 04/15/16 15:14:00 CDT Inactive 04/15/2016 [facility] alteplase 4 mg + Sodium Chloride 0.9% IV 100 mL 100 mL, Rate: 12.5 ml/hr, Infuse over: 8 hr, Route: INTRAARTERIAL, Dosing Weight 107.273 kg, Total Volume: 100, Start date: 04/15/16 13:00:00 CDT, Duration: 36 hr, Stop date: 04/17/16 0:59:00 CDTNotes: Stable for 8 hours only (Same as: Activase) MEDICATION WASTE Product Size: 2 mg Product Wasted: ___ mg No Longer Active 04/15/2016 [facility] Dilaudid 1 mg, 1 mL, Route: IV, Drug form: INJ, Q3H, Dosing Weight 107.273, kg, PRN Pain Score 7-10, Start date: 04/15/16 12:40:00 CDT, Duration: 30 day, Stop date: 05/15/16 12:39:00 CDT No Longer Active 04/15/2016 [facility] heparin additive 25,000 unit [14 unit/kg/hr] + Premix Diluent Dextrose 5% 500 mL 500 mL, Rate: 25.05 ml/hr, Infuse over: 20 hr, Route: IV, Dosing Weight 89.47 kg, Total Volume: 500 mL, Start date: 04/15/16 12:38:00 CDT, Duration: 30 day, Stop date: 05/15/16 12:37:00 CDT No Longer Active 04/15/2016 [facility] atorvastatin 40 mg, PO, Daily, 0 Refill(s) No Longer Active 04/15/2016 [facility] Alprazolam 0.5 MG Oral Tablet 0.5 mg, 1 tab, Route: PO, Drug form: TAB, ONCE, Dosing Weight 107.273, kg, Priority: NOW, Start date: 04/15/16 10:10:00 CDT, Stop date: 04/15/16 10:10:00 CDTNotes: With food or milk (Same as: Xanax) Inactive 04/15/2016 [facility] Benadryl 50 mg, 2 tab, Route: PO, Drug form: TAB, ONCE, Dosing Weight 107.273, kg, Priority: NOW, Start date: 04/15/16 10:10:00 CDT, Stop date: 04/15/16 10:10:00 CDT Inactive 04/15/2016 [facility] normal saline 0.9% IV 1,000 mL 1,000 mL, Rate: 100 ml/hr, Infuse over: 10 hr, Route: IV, Dosing Weight 107.273 kg, Total Volume: 1,000, Start date: 04/15/16 10:09:00 CDT, Duration: 30 day, Stop date: 05/15/16 10:08:00 CDT No Longer Active 04/15/2016 [facility] Ramipril 2.5 mg, 1 cap, Route: PO, Drug form: CAP, Daily, Dosing Weight 105, kg, Start date: 03/17/15 9:00:00, Duration: 30 day, Stop date: 04/15/15 9:00:00Notes: (Same as:Altace) Inactive 03/17/2015 [facility] 24 HR Metoprolol Tartrate 25 MG Extended Release Tablet [Toprol] 25 mg, 1 tab, Route: PO, Drug form: ERTAB, Daily, Start date: 03/17/15 9:00:00, Duration: 30 day, Stop date: 04/15/15 9:00:00Notes: (Same as: Toprol XL) Do Not Crush Inactive 03/17/2015 [facility] Lexapro 20 mg, 1 tab, Route: PO, Drug form: TAB, Daily, Dosing Weight 105, kg, Start date: 03/17/15 9:00:00, Duration: 30 day, Stop date: 04/15/15 9:00:00Notes: (Same as: Lexapro) Inactive 03/17/2015 [facility] Plavix 75 mg, 1 tab, Route: PO, Drug form: TAB, Daily, Dosing Weight 105, kg, Start date: 03/17/15 9:00:00, Duration: 30 day, Stop date: 04/15/15 9:00:00Notes: (Same As: Plavix) Inactive 03/17/2015 [facility] Aspirin 325 MG Oral Tablet 325 mg, 1 tab, Route: PO, Drug form: TAB, Daily, Dosing Weight 105, kg, Start date: 03/17/15 9:00:00, Duration: 30 day, Stop date: 04/15/15 9:00:00Notes: Take with food. Inactive 03/17/2015 [facility] Zocor 10 mg, 1 tab, Route: PO, Drug form: TAB, Bedtime, Start date: 03/16/15 21:00:00, Duration: 30 day, Stop date: 04/14/15 21:00:00Notes: (Same as: Zocor) No Longer Active 03/17/2015 [facility] Zetia 10 mg, 1 tab, Route: PO, Drug form: TAB, Bedtime, Start date: 03/16/15 21:00:00, Duration: 30 day, Stop date: 04/14/15 21:00:00Notes: (Same as: Zetia) No Longer Active 03/17/2015 [facility] ezetimibe 10 MG / Simvastatin 10 MG Oral Tablet 1 tab, Route: PO, Dosing Weight 105, kg, Bedtime, Start date: 03/16/15 21:00:00, Duration: 30 day, Stop date: 04/14/15 21:00:00 Inactive 03/17/2015 [facility] atropine 0.5 mg, 5 mL, Route: IVP, Drug form: INJ, PRN, PRN Bradycardia, Start date: 03/16/15 19:57:00, Duration: 30 day, Stop date: 04/15/15 19:56:00 No Longer Active 03/17/2015 [facility] nitroglycerin 0.4 mg sublingual tablet 0.4 mg, 1 tab, Route: SL, Drug form: TAB, Q5Min, PRN Chest Pain, Start date: 03/16/15 19:57:00, Duration: 30 day, Stop date: 04/15/15 19:56:00Notes: (Same as:Nitroquick, Nitrostat) "Do Not Crush" Sublingual tablet No Longer Active 03/17/2015 [facility] Acetaminophen 325 mg, 1 tab, Route: PO, Drug form: TAB, Q4H, Dosing Weight 105, kg, PRN Pain Score 4-6, Start date: 03/16/15 17:04:00, Duration: 30 day, Stop date: 04/15/15 17:03:00Notes: Do not exceed 4 gm/day. (Same as: Tylenol) No Longer Active 03/16/2015 [facility] acetaminophen-codeine #3 1 tab, Route: PO, Drug Form: TAB, Dosing Weight 105, kg, Q4H, PRN Pain Score 4-6, Start date: 03/16/15 17:04:00, Duration: 30 day, Stop date: 04/15/15 17:03:00Notes: Do not exceed 4gm/day of acetaminophen. (Same as: Tylenol with Codeine # 3) No Longer Active 03/16/2015 [facility] Ondansetron 4 mg, 2 mL, Route: IVP, Drug form: INJ, Q8H, Dosing Weight 105, kg, PRN Nausea & Vomiting, Start date: 03/16/15 17:04:00, Duration: 30 day, Stop date: 04/15/15 17:03:00Notes: (Same as: Karina) MEDICATION WASTE Product Size: 4 mg Product Wasted: ___ mg No Longer Active 03/16/2015 [facility] Vancomycin 1 gm, 200 mL, Route: IVPB, Drug form: INJ, ONCE, Dosing Weight 105, kg, Start date: 03/16/15 17:04:00, Stop date: 03/16/15 17:04:00 Inactive 03/16/2015 [facility] Aspirin 325 MG Oral Tablet 325 mg=1 tab, PO, Daily, # 30 tab, 0 Refill(s) Active 03/15/2015 [facility] Escitalopram 20 MG Oral Tablet [Lexapro] 20 mg=1 tab, PO, Daily, # 30 tab, 0 Refill(s) Active 03/15/2015 [facility] ezetimibe 10 MG / Simvastatin 20 MG Oral Tablet [Vytorin 10/20] 1 tab, PO, Daily, # 30 tab, 0 Refill(s) Active 03/15/2015 [facility] metoprolol 25 mg oral tablet, extended release 25 mg, PO, Daily, # 30 tab, 0 Refill(s) Active 03/15/2015 [facility] ramipril 2.5 mg oral capsule 2.5 mg=1 cap, PO, Daily, # 30 cap, 0 Refill(s) Active 03/15/2015 [facility] clopidogrel 75 MG Oral Tablet [Plavix] 75 mg=1 tab, PO, Daily, # 30 tab, 0 Refill(s) Active 03/15/2015 [facility] Allergies, Adverse Reactions, Alerts Substance Category Reaction Severity Reaction type Status Date Reported Comments Source Immunizations Immunization Date Given Site Status Last Updated Comments Source pneumococcal 23-valent vaccine 04/17/2016 Not Given [facility] Results Order Name Results Value Reference Range Date Interpretation Comments Source CHEM PANEL BUN 11 mg/dL 7 - 22 04/17/2016 [facility] CHEM PANEL CO2 25 meq/L 24 - 32 04/17/2016 [facility] CHEM PANEL Sodium Lvl 139 meq/L 135 - 145 04/17/2016 [facility] CHEM PANEL Potassium Lvl 3.9 meq/L 3.5 - 5.1 04/17/2016 [facility] CHEM PANEL Chloride Lvl 105 meq/L 95 - 109 04/17/2016 [facility] CHEM PANEL Creatinine Lvl 0.68 mg/dL 0.50 - 1.40 04/17/2016 [facility] CHEM PANEL Glucose Lvl 143 mg/dL 70 - 99 04/17/2016 [facility] CHEM PANEL Calcium Lvl 8.1 mg/dL 8.5 - 10.5 04/17/2016 [facility] CHEM PANEL AGAP 12.9 meq/L 10.0 - 20.0 04/17/2016 [facility] CHEM PANEL eGFR 104 mL/min/1.73m2 04/17/2016 Result Comment: The eGFR is calculated using the [...] from the National Kidney Disease Education Program (NKDEP) which additionally recommends that when the eGFR is used in patients with extremes of body mass index for purposes of drug dosing, the eGFR should be multiplied by the estimated BMI. [facility] Platelet 119 K/CMM 133 - 450 04/17/2016 [facility] MPV 9.0 fL 7.4 - 10.4 04/17/2016 [facility] RDW 13.5 % 11.5 - 14.5 04/17/2016 [facility] Hct 46.7 % 42.0 - 54.0 04/17/2016 [facility] RBC 5.32 M/CMM 4.70 - 6.10 04/17/2016 [facility] Hgb 15.7 g/dL 14.0 - 18.0 04/17/2016 [facility] WBC 9.3 K/CMM 3.7 - 10.4 04/17/2016 [facility] MCHC 33.5 g/dL 32.0 - 36.0 04/17/2016 [facility] MCH 29.4 pg 27.0 - 31.0 04/17/2016 [facility] MCV 87.8 fL 80.0 - 94.0 04/17/2016 [facility] Monocytes # 0.6 K/CMM 0.0 - 0.8 04/17/2016 [facility] Segs-Bands # 7.4 K/CMM 1.5 - 8.1 04/17/2016 [facility] Lymphocytes # 1.2 K/CMM 1.0 - 5.5 04/17/2016 [facility] Basophils 0.3 % 0.0 - 1.0 04/17/2016 [facility] Eosinophils 0.4 % 0.0 - 4.0 04/17/2016 [facility] Lymphocytes 13.4 % 20.0 - 40.0 04/17/2016 [facility] Monocytes 6.9 % 2.0 - 12.0 04/17/2016 [facility] Segs 79.0 % 45.0 - 75.0 04/17/2016 [facility] MCV 88.0 fL 80.0 - 94.0 04/17/2016 [facility] MPV 8.8 fL 7.4 - 10.4 04/17/2016 [facility] RDW 13.4 % 11.5 - 14.5 04/17/2016 [facility] Platelet 112 K/CMM 133 - 450 04/17/2016 [facility] MCH 29.5 pg 27.0 - 31.0 04/17/2016 [facility] MCHC 33.6 g/dL 32.0 - 36.0 04/17/2016 [facility] RBC 5.32 M/CMM 4.70 - 6.10 04/17/2016 [facility] Hgb 15.7 g/dL 14.0 - 18.0 04/17/2016 [facility] Hct 46.8 % 42.0 - 54.0 04/17/2016 [facility] WBC 9.6 K/CMM 3.7 - 10.4 04/17/2016 [facility] CHEM PANEL eGFR 107 mL/min/1.73m2 04/16/2016 Result Comment: The eGFR is calculated using the [...] from the National Kidney Disease Education Program (NKDEP) which additionally recommends that when the eGFR is used in patients with extremes of body mass index for purposes of drug dosing, the eGFR should be multiplied by the estimated BMI. [facility] CHEM PANEL Glucose Lvl 105 mg/dL 70 - 99 04/16/2016 [facility] CHEM PANEL BUN 12 mg/dL 7 - 22 04/16/2016 [facility] CHEM PANEL Creatinine Lvl 0.64 mg/dL 0.50 - 1.40 04/16/2016 [facility] CHEM PANEL Sodium Lvl 138 meq/L 135 - 145 04/16/2016 [facility] CHEM PANEL CO2 21 meq/L 24 - 32 04/16/2016 [facility] CHEM PANEL Chloride Lvl 107 meq/L 95 - 109 04/16/2016 [facility] CHEM PANEL Potassium Lvl 4.1 meq/L 3.5 - 5.1 04/16/2016 [facility] CHEM PANEL Calcium Lvl 8.0 mg/dL 8.5 - 10.5 04/16/2016 [facility] CHEM PANEL AGAP 14.1 meq/L 10.0 - 20.0 04/16/2016 [facility] HEMATOLOGY WBC 10.4 K/CMM 3.7 - 10.4 04/16/2016 [facility] MCV 87.4 fL 80.0 - 94.0 04/16/2016 [facility] HEMATOLOGY MPV 8.4 fL 7.4 - 10.4 04/16/2016 [facility] Hct 49.8 % 42.0 - 54.0 04/16/2016 [facility] Hgb 16.9 g/dL 14.0 - 18.0 04/16/2016 [facility] RBC 5.70 M/CMM 4.70 - 6.10 04/16/2016 [facility] Platelet 125 K/CMM 133 - 450 04/16/2016 [facility] RDW 13.6 % 11.5 - 14.5 04/16/2016 [facility] MCHC 33.8 g/dL 32.0 - 36.0 04/16/2016 [facility] MCH 29.6 pg 27.0 - 31.0 04/16/2016 [facility] PTT 57.5 s 22.9 - 35.8 04/16/2016 [facility] Basophils # 0.1 K/CMM 0.0 - 0.2 04/16/2016 [facility] Segs 73.4 % 45.0 - 75.0 04/16/2016 [facility] Basophils 0.7 % 0.0 - 1.0 04/16/2016 [facility] Lymphocytes # 1.9 K/CMM 1.0 - 5.5 04/16/2016 [facility] Segs-Bands # 7.7 K/CMM 1.5 - 8.1 04/16/2016 [facility] Eosinophils # 0.1 K/CMM 0.0 - 0.5 04/16/2016 [facility] Monocytes # 0.7 K/CMM 0.0 - 0.8 04/16/2016 [facility] Monocytes 6.6 % 2.0 - 12.0 04/16/2016 [facility] Lymphocytes 18.5 % 20.0 - 40.0 04/16/2016 [facility] HEMATOLOGY Eosinophils 0.8 % 0.0 - 4.0 04/16/2016 [facility] Abdomen/Pelvis w/wo IV contrast CT Abdomen/Pelvis w/wo IV contrast CT Patient Name: EDGAR SANTILLAN : 1955; Age: 61 years y/o Male MR: [id number] Study: Abdomen/Pelvis w/wo IV contrast CT 04/16/2016 8:27 AM CDT Ordering Physician: Loc Callahan MD Clinical Indication: Abdominal pain, acute; left leg pain blood clot behind the left knee. Status post catheterization. Comparison: None. TECHNIQUE: Helical imaging was performed diaphragm through the symphysis with multiplanar reformations obtained. Pre and postcontrast images are done through the abdomen and pelvis. Delayed images are also provided. FINDINGS: LOWER CHEST: Bilateral dependent lung subsegmental atelectasis is seen. Trace bilateral pleural effusions are identified. Automatic implantable cardiac defibrillator/pacemaker wires are seen in the right heart and coronary sinus. There is a small hiatal hernia. No pericardial effusion is identified. No pleural or pericardial effusion is identified. SOLID ORGANS: Gallbladder is surgically absent Liver, spleen, pancreas, and bilateral adrenal glands within normal limits. Subcentimeter focal hypodensities in bilateral kidneys are too small to characterize. There is a 1.7 cm left renal interpolar hypodense cyst. Excretion of contrast is seen from bilateral kidneys, likely related to recent contrast administration. No femoral pseudoaneurysm is identified. The imaged iliofemoral veins and inferior vena cava are patent. BOWEL: Large and small bowel is normal in caliber. Small sigmoid colon diverticula are seen without inflammation. Appendix is normal. PERITONEUM: No intraperitoneal free air is seen. No intraperitoneal free fluid is identified. RETROPERITONEUM: No adenopathy. 3 cm fusiform aneurysm of the infrarenal abdominal aorta is seen. Mild calcifications of the aorta and bilateral iliofemoral vessels are identified. There is no retroperitoneal hematoma. Mild thickening of the anterior distal left common femoral arterial wall is seen. No active extravasation is identified. The common femoral, and imaged superficial femoral and deep femoral arteries are patent. PELVIS: Contrast is present in the urinary bladder. Prostate is mildly enlarged. Trace bilateral hypodense hydroceles are seen. MUSCULOSKELETAL: No osseous destructive lesions are seen. Fat stranding and minimal hematoma are seen in the left groin. IMPRESSION: 1. Fat edema with minimal hematoma in the left groin. No arterial pseudoaneurysm or active extravasation seen. No retroperitoneal hematoma seen. 2. No deep venous thrombosis identified. 3. 3 cm infrarenal abdominal aortic fusiform aneurysm. 4. Small hiatal hernia. 5. Mild prostatomegaly. SL: [id number] 04/16/2016 - - Read by: Sheryl Fitzgerald MD Dictated Date/time: 04/16/16 11:16 Electronically Signed by: Sheryl Fitzgerald MD 04/16/16 11:27 FINAL REPORT [facility] PTT 59.6 s 22.9 - 35.8 04/16/2016 [facility] PT 14.8 s 12.0 - 14.7 04/15/2016 [facility] INR 1.13 0.85 - 1.17 04/15/2016 [facility] PTT 93.2 s 22.9 - 35.8 04/15/2016 [facility] Lymphocytes # 2.7 K/CMM 1.0 - 5.5 04/15/2016 [facility] Eosinophils # 0.1 K/CMM 0.0 - 0.5 04/15/2016 [facility] Monocytes # 0.5 K/CMM 0.0 - 0.8 04/15/2016 [facility] Basophils 1.0 % 0.0 - 1.0 04/15/2016 [facility] Eosinophils 1.1 % 0.0 - 4.0 04/15/2016 [facility] Segs-Bands # 5.6 K/CMM 1.5 - 8.1 04/15/2016 [facility] Basophils # 0.1 K/CMM 0.0 - 0.2 04/15/2016 [facility] Segs 62.2 % 45.0 - 75.0 04/15/2016 [facility] Lymphocytes 29.7 % 20.0 - 40.0 04/15/2016 [facility] Monocytes 6.0 % 2.0 - 12.0 04/15/2016 [facility] BACTERIAL - SEROLOGY MRSA by PCR Negative (04/15/16 6:07 PM) 04/15/2016 [facility] CHEM PANEL eGFR 91 mL/min/1.73m2 04/15/2016 Result Comment: The eGFR is calculated using the [...] from the National Kidney Disease Education Program (NKDEP) which additionally recommends that when the eGFR is used in patients with extremes of body mass index for purposes of drug dosing, the eGFR should be multiplied by the estimated BMI. [facility] CHEM PANEL Sodium Lvl 138 meq/L 135 - 145 04/15/2016 [facility] CHEM PANEL Potassium Lvl 4.1 meq/L 3.5 - 5.1 04/15/2016 [facility] CHEM PANEL Chloride Lvl 108 meq/L 95 - 109 04/15/2016 [facility] CHEM PANEL Calcium Lvl 8.7 mg/dL 8.5 - 10.5 04/15/2016 [facility] CHEM PANEL CO2 23 meq/L 24 - 32 04/15/2016 [facility] CHEM PANEL BUN 13 mg/dL 7 - 22 04/15/2016 [facility] CHEM PANEL Creatinine Lvl 0.92 mg/dL 0.50 - 1.40 04/15/2016 [facility] CHEM PANEL Glucose Lvl 102 mg/dL 70 - 99 04/15/2016 [facility] CHEM PANEL AGAP 11.1 meq/L 10.0 - 20.0 04/15/2016 [facility] HEMATOLOGY Eosinophils # 0.1 K/CMM 0.0 - 0.5 04/15/2016 [facility] HEMATOLOGY Basophils # 0.2 K/CMM 0.0 - 0.2 04/15/2016 [facility] LIPIDS Chol 147 mg/dL <=199 mg/dL 04/15/2016 [facility] LIPIDS VLDL 26 04/15/2016 [facility] LIPIDS LDL (Calculated) 92 mg/dL <=99 mg/dL 04/15/2016 [facility] LIPIDS HDL 29 mg/dL >=61 mg/dL 04/15/2016 [facility] LIPIDS Trig 130 mg/dL <=149 mg/dL 04/15/2016 [facility] LIPIDS CHD Risk 5.07 4.00 - 7.30 04/15/2016 [facility] CHEM PANEL eGFR 99 mL/min/1.73m2 03/16/2015 1Result Comment: The eGFR is calculated using [...] from the National Kidney Disease Education Program (NKDEP) which additionally recommends that when the eGFR is used in patients with extremes of body mass index for purposes of drug dosing, the eGFR should be multiplied by the estimated BMI. [facility] CHEM PANEL Glucose Lvl 95 mg/dL 70 - 99 03/16/2015 2Interpretive Data: Adult reference range values reflect the clinical guidelines of the [place] [employer]. [facility] CHEM PANEL Creatinine Lvl 0.8 mg/dL 0.5 - 1.4 03/16/2015 [facility] CHEM PANEL Sodium Lvl 141 meq/L 135 - 145 03/16/2015 [facility] CHEM PANEL Potassium Lvl 4.0 meq/L 3.5 - 5.1 03/16/2015 [facility] CHEM PANEL BUN 12 mg/dL 7 - 22 03/16/2015 [facility] CHEM PANEL Calcium Lvl 8.6 mg/dL 8.5 - 10.5 03/16/2015 [facility] CHEM PANEL Chloride Lvl 109 meq/L 95 - 109 03/16/2015 [facility] CHEM PANEL CO2 26 meq/L 24 - 32 03/16/2015 [facility] CHEM PANEL AGAP 10.0 meq/L 10.0 - 20.0 03/16/2015 [facility] HEMATOLOGY MCH 31.5 pg 27.0 - 31.0 03/16/2015 [facility] Platelet 124 K/CMM 133 - 450 03/16/2015 [facility] MPV 8.1 fL 7.4 - 10.4 03/16/2015 [facility] MCHC 34.4 g/dL 32.0 - 36.0 03/16/2015 [facility] RDW 12.9 % 11.5 - 14.5 03/16/2015 [facility] WBC 7.0 K/CMM 3.7 - 10.4 03/16/2015 [facility] Hct 48.5 % 42.0 - 54.0 03/16/2015 [facility] HEMATOLOGY MCV 91.5 fL 80.0 - 94.0 03/16/2015 [facility] RBC 5.30 M/CMM 4.70 - 6.10 03/16/2015 [facility] Hgb 16.7 g/dL 14.0 - 18.0 03/16/2015 [facility] PTT 31.0 s 22.9 - 35.8 03/16/2015 4Interpretive Data: Heparin Therapeutic Range: 57 - 92 Seconds [facility] PT 13.2 s 12.0 - 14.7 03/16/2015 [facility] INR 1.00 0.85 - 1.17 03/16/2015 3Interpretive Data: RECOMMENDED RANGES FOR PROTIME INR: 2.0-3.0 for most medical and surgical thromboembolic states. 2.5-3.5 for artificial heart valves and recurrent embolism. INR SHOULD BE USED ONLY FOR PATIENTS ON STABLE ANTICOAGULANT THERAPY. [facility] HEMATOLOGY Segs-Bands # 4.3 K/CMM 1.5 - 8.1 03/16/2015 [facility] HEMATOLOGY Eosinophils # 0.1 K/CMM 0.0 - 0.5 03/16/2015 [facility] HEMATOLOGY Lymphocytes # 2.1 K/CMM 1.0 - 5.5 03/16/2015 [facility] HEMATOLOGY Monocytes # 0.5 K/CMM 0.0 - 0.8 03/16/2015 [facility] Monocytes 6.5 % 2.0 - 12.0 03/16/2015 [facility] HEMATOLOGY Basophils 1.0 % 0.0 - 1.0 03/16/2015 [facility] HEMATOLOGY Eosinophils 1.4 % 0.0 - 4.0 03/16/2015 [facility] Basophils # 0.1 K/CMM 0.0 - 0.2 03/16/2015 [facility] HEMATOLOGY Segs 60.7 % 45.0 - 75.0 03/16/2015 [facility] Lymphocytes 30.4 % 20.0 - 40.0 03/16/2015 [facility] Vital Signs Vital Sign Value Date Comments Source Heart Rate 75 04/17/2016 [facility] Respitory Rate 18 04/17/2016 [facility] Temperature Oral (F) 98.2 F 04/17/2016 [facility] Systolic (mm Hg) 136 04/17/2016 [facility] Diastolic (mm Hg) 87 04/17/2016 [facility] Temperature Oral (F) 98.2 F 04/17/2016 [facility] Systolic (mm Hg) 132 04/17/2016 [facility] Diastolic (mm Hg) 59 04/17/2016 [facility] Respitory Rate 18 04/17/2016 [facility] Systolic (mm Hg) 142 04/17/2016 [facility] Diastolic (mm Hg) 54 04/17/2016 [facility] Respitory Rate 18 04/17/2016 [facility] Temperature Oral (F) 98.1 F 04/16/2016 [facility] Weight 103.007 04/15/2016 [facility] Height 182.88 cm 04/15/2016 [facility] BMI Calculated 32.07 04/15/2016 [facility] Weight 107.273 04/15/2016 [facility] Temperature Oral (F) 98.5 F 03/17/2015 [facility] Heart Rate 66 03/17/2015 [facility] Systolic (mm Hg) 146 03/17/2015 [facility] Diastolic (mm Hg) 84 03/17/2015 [facility] Respitory Rate 20 03/17/2015 [facility] Respitory Rate 16 03/17/2015 [facility] Systolic (mm Hg) 137 03/17/2015 [facility] Diastolic (mm Hg) 74 03/17/2015 [facility] Respitory Rate 18 03/17/2015 [facility] Temperature Oral (F) 98.4 F 03/17/2015 [facility] Heart Rate 60 03/17/2015 [facility] Temperature Oral (F) 98.0 F 03/17/2015 [facility] Heart Rate 78 03/17/2015 [facility] Systolic (mm Hg) 130 03/17/2015 [facility] Diastolic (mm Hg) 82 03/17/2015 [facility] Weight 104.545 03/17/2015 [facility] BMI Calculated 31.26 03/17/2015 [facility] Height 182.88 cm 03/17/2015 [facility] Height 182.88 cm 03/16/2015 [facility] BMI Calculated 31.39 03/16/2015 [facility] Weight 105 03/16/2015 [facility] Encounters Location Location Details Encounter Type Encounter Number Reason For Visit Attending Provider ADM Date DC Date Status Source [facility] OBS Observation Patient [id number] Rachel Grissom 03/16/2015 03/17/2015 [facility] Inpatient [id number] Loc Callahan 04/15/2016 04/17/2016 [facility] Procedures Procedure Code Date Perfomer Comments Source Arthroscopic knee operation [id number] [facility] CABG - Coronary artery bypass graft [id number] [facility] Cardiac catheterization, left heart<sup>1</sup> [id number] with stent x 4 last nov 2014 [facility] Extraction of wisdom tooth [id number] [facility] Foot incision [id number] [facility] ICD - Internal cardiac defibrillator procedure [id number] [facility]
--- OUTSIDE RECORDS SUMMARY | 2018-09-28 05:23 | XMS REPORT ---
Author Author [facility] Address Unknown Phone Unavailable Care Team Providers Care Transmission System Operator Name Role Phone Unavailable Unavailable Payers Payer Name Policy Type Policy Number Effective Date Expiration Date Problems This patient has no known problems. Allergies, Adverse Reactions, Alerts Allergy Name Allergy Type Status Severity Reaction(s) Onset Date Inactive Date Treating Clinician Comments No Known Allergies DA Active U 2018-04-06 00:00:00 Medications This patient has no known medications.
[2018-09-28] MEDS ORDERED: ACETAMINOPHEN 325 MG TAB PO ONE (05:45)
[2018-09-28] MEDS ORDERED: SODIUM CHLORIDE 0.9% 1000ML 1,000 ML IV ONE (05:45)
[2018-09-28 06:30] LABS: BASOPHILS % 0.2 % (0.0-1.0); HEMOGLOBIN 16.3 g/dL (14.0-18.0); LYMPHOCYTES # (AUTO) 1.8 (1.0-3.2); MEAN CORPUSCULAR HEMOGLOBIN 28.6 pg (28-32); MEAN CORPUSCULAR HGB CONC 33.3 g/dL (31-35); MEAN CORPUSCULAR VOLUME 86.1 fL (81-99); MONOCYTES # (AUTO) 0.5 (0.2-0.8); MONOCYTES % 10.6 % (4.4-11.3); NEUTROPHILS # (AUTO) 2.2 (2.1-6.9); PLATELET COUNT 75 x10e3/uL (140-360); RED BLOOD COUNT 5.69 x10e6/uL (4.3-5.7); RED CELL DISTRIBUTION WIDTH 15.5 % (11.7-14.4)
[2018-09-28] MEDS ORDERED: ALBUTEROL/IPRATROPIUM 3 ML NEB NEB ONE (06:30)
[2018-09-28 06:46] LABS: CLARITY,URINE SL CLOUDY (CLEAR); COLOR,URINE YELLOW (YELLOW); LEUKOCYTE ESTERASE ,URINE NEGATIVE (NEGATIVE)
[2018-09-28 06:47] LABS: BILIRUBIN,URINE NEGATIVE (NEGATIVE); KETONES,URINE NEGATIVE (NEGATIVE); NITRITE,URINE NEGATIVE (NEGATIVE); PROTEIN,URINE DIPSTICK NEGATIVE (NEGATIVE); URINE UROBILINOGEN 0.2 mg/dL (0.2 - 1)
[2018-09-28 06:51] LABS: ALANINE AMINOTRANSFERASE 48 IU/L (0-55); ALBUMIN 3.4 g/dL (3.5-5.0); ALBUMIN/GLOBULIN RATIO 0.9 (0.8-2.0); ALKALINE PHOSPHATASE 52 IU/L (40-150); ANION GAP 12.9 mmol/L (8-16); BLOOD UREA NITROGEN 12 mg/dL (7-26); BUN/CREATININE RATIO 13 (6-25); CALCIUM 8.6 mg/dL (8.4-10.2); CARBON DIOXIDE 25 mmol/L (22-29); CHLORIDE 101 mmol/L (98-107); CREATINE KINASE 298 IU/L (30-200); EST GLOMERULAR FILTRATION RATE > 60 ML/MIN (60-); GLUCOSE 119 mg/dL (74-118); POTASSIUM 3.9 mmol/L (3.5-5.1); SODIUM 135 mmol/L (136-145)
[2018-09-28 07:13] LABS: EPITHELIAL CELLS,URINE RARE /LPF; MUCUS,URINE RARE (RARE); WBC,URINE (MAN) 0-5 /HPF (0-5)
--- NOTE | 2018-09-28 07:16 | Diagnostic Imaging Report ---
EXAMINATION: PA and lateral views of the chest. COMPARISON: None CLINICAL HISTORY: Cough, fever DISCUSSION: The lungs are well-inflated and without focal consolidation, pleural effusion, or pneumothorax. Hazy opacity adjacent to the cardiac apex likely reflects prominent epicardial fat and/or postsurgical mediastinal change. Left subclavian approach implantable cardiac device body projects over the left midlung. Leads project over the expected regions of the right atrium, right ventricle, and coronary sinus. Median sternotomy wires and mediastinal surgical clips. Normal heart size without overt pulmonary edema. No acute osseous abnormality. Surgical clips are visualized projecting over the upper abdomen on the lateral radiograph and likely reflect prior cholecystectomy. IMPRESSION: No acute cardiopulmonary abnormality. No consolidative pneumonia. Signed by: Dr. Chandler Noble M.D. on 09/28/2018 7:13 AM
[2018-09-28 07:32] VITALS: BP 116/71
== END 2018-09-28 07:46 | disposition home or self-care (01) ==
LOC: ER 05:19
DX: R50.9 Fever, unspecified (principal); R05 Cough; J11.1 Influenza due to unidentified influenza virus with other respiratory manifestations; I10 Essential (primary) hypertension; I25.10 Atherosclerotic heart disease of native coronary artery without angina pectoris; Z86.718 Personal history of other venous thrombosis and embolism; F17.210 Nicotine dependence, cigarettes, uncomplicated
CPT/HCPCS: 36415; 71046; 80053; 81001; 82550; 82553; 83518; 83605; 84484; 85025; 87040; 87070; 87400; 93005; 94640; 99284; J7030

== ENCOUNTER 2018-11-03 18:00 | Emergency (ER) | payer OTHER ==
[~2018-11-03] VITALS: Ht 182.9 cm; Wt 105.7 kg
[2018-11-03] MEDS ORDERED: ASPIRIN 81 MG CHEW TAB PO ONE (18:30)
[2018-11-03 18:49] LABS: BASOPHILS # (AUTO) 0.1 (0.0-0.1); BASOPHILS % 0.4 % (0.0-1.0); EOSINOPHILS # (AUTO) 0.1 (0.0-0.4); EOSINOPHILS % 0.5 % (0.0-6.0); HEMATOCRIT 52.3 % (38.2-49.6); HEMOGLOBIN 18.2 g/dL (14.0-18.0); LYMPHOCYTES # (AUTO) 2.9 (1.0-3.2); LYMPHOCYTES % 22.1 % (18.0-39.1); MEAN CORPUSCULAR HEMOGLOBIN 30.5 pg (28-32); MEAN CORPUSCULAR HGB CONC 34.8 g/dL (31-35); MEAN CORPUSCULAR VOLUME 87.6 fL (81-99); MONOCYTES % 7.9 % (4.4-11.3); NEUTROPHILS # (AUTO) 9.1 (2.1-6.9); NEUTROPHILS % 68.3 % (38.7-80.0); PLATELET COUNT 155 x10e3/uL (140-360); RED BLOOD COUNT 5.97 x10e6/uL (4.3-5.7); RED CELL DISTRIBUTION WIDTH 14.4 % (11.7-14.4)
[2018-11-03 19:05] LABS: CLARITY,URINE CLEAR (CLEAR); COLOR,URINE YELLOW (YELLOW); KETONES,URINE NEGATIVE (NEGATIVE); LEUKOCYTE ESTERASE ,URINE NEGATIVE (NEGATIVE); NITRITE,URINE NEGATIVE (NEGATIVE); PROTEIN,URINE DIPSTICK NEGATIVE (NEGATIVE); URINE UROBILINOGEN 0.2 mg/dL (0.2 - 1)
[2018-11-03 19:06] LABS: BILIRUBIN,URINE NEGATIVE (NEGATIVE)
[2018-11-03 19:07] LABS: WBC,URINE (MAN) 0-5 /HPF (0-5)
[2018-11-03 19:08] LABS: ALANINE AMINOTRANSFERASE 27 IU/L (0-55); ALBUMIN 4.1 g/dL (3.5-5.0); ALKALINE PHOSPHATASE 66 IU/L (40-150); ANION GAP 16.6 mmol/L (8-16); BLOOD UREA NITROGEN 18 mg/dL (7-26); BUN/CREATININE RATIO 19 (6-25); CALCIUM 9.7 mg/dL (8.4-10.2); CARBON DIOXIDE 20 mmol/L (22-29); CHLORIDE 103 mmol/L (98-107); CREATINE KINASE 33 IU/L (30-200); CREATININE, SERUM 0.94 mg/dL (0.72-1.25); EST GLOMERULAR FILTRATION RATE > 60 ML/MIN (60-); GLUCOSE 106 mg/dL (74-118); POTASSIUM 4.6 mmol/L (3.5-5.1); SODIUM 135 mmol/L (136-145)
[2018-11-03 19:31] LABS: INR 0.87; PROTHROMBIN TIME 12.7 seconds (11.9-14.5)
[2018-11-03 19:32] LABS: PARTIAL THROMBOPLASTIN TIME 31.8 seconds (23.8-35.5)
--- NOTE | 2018-11-03 19:51 | Diagnostic Imaging Report ---
EXAMINATION: CHEST SINGLE (PORTABLE) INDICATION: Chest pain COMPARISON: Chest x-ray 09/28/2018 FINDINGS: AP view TUBES and LINES: Left-sided AICD with 3 leads. Median sternotomy wires are present. LUNGS: Lungs are well inflated. Lungs are clear. There is no evidence of pneumonia or pulmonary edema. PLEURA: No pleural effusion or pneumothorax. HEART AND MEDIASTINUM: The cardiomediastinal silhouette is unremarkable. BONES AND SOFT TISSUES: No acute osseous lesion. Soft tissues are unremarkable. UPPER ABDOMEN: No free air under the diaphragm. IMPRESSION: No acute thoracic abnormality. Signed by: Dr. Adalberto Yanez M.D. on 11/03/2018 7:47 PM
[2018-11-03 20:59] VITALS: BP 133/83
== END 2018-11-03 21:08 | disposition home or self-care (01) ==
LOC: ER 18:00
DX: R00.2 Palpitations (principal); I44.7 Left bundle-branch block, unspecified; I10 Essential (primary) hypertension; Z86.711 Personal history of pulmonary embolism; Z86.718 Personal history of other venous thrombosis and embolism; I25.10 Atherosclerotic heart disease of native coronary artery without angina pectoris; Z98.61 Coronary angioplasty status; Z95.1 Presence of aortocoronary bypass graft; G47.30 Sleep apnea, unspecified; Z95.0 Presence of cardiac pacemaker; Z96.653 Presence of artificial knee joint, bilateral; Z79.02 Long term (current) use of antithrombotics/antiplatelets; Z79.82 Long term (current) use of aspirin
CPT/HCPCS: 36415; 71045; 80053; 81001; 82550; 82553; 83880; 84484; 85025; 85610; 85730; 93005; 99284

== ENCOUNTER 2018-12-27 11:24 | Observation (INO) | payer OTHER ==
[~2018-12-27] VITALS: Ht 182.9 cm; Wt 106.4 kg
[2018-12-27] MEDS ORDERED: ASPIRIN 81 MG CHEW TAB PO ONE (12:00)
--- NOTE | 2018-12-27 12:19 | Diagnostic Imaging Report ---
Examination: Single AP view of the chest. COMPARISON: 11/03/2018 INDICATION: Chest pain DISCUSSION: Left subclavian approach implantable cardiac device body and leads are unchanged relative to 11/03/2018. Multiple median sternotomy wires and mediastinal surgical clips. Lungs are well-inflated and without focal consolidation or pleural effusion. No pneumothorax. Cardiomediastinal contour is stable when accounting for differences in technique. No overt pulmonary edema. No acute osseous abnormality. IMPRESSION: No acute cardiopulmonary abnormality. Signed by: Dr. Chandler Noble M.D. on 12/27/2018 12:15 PM
[2018-12-27 12:38] LABS: BASOPHILS % 0.6 % (0.0-1.0); EOSINOPHILS # (AUTO) 0.1 (0.0-0.4); EOSINOPHILS % 0.9 % (0.0-6.0); HEMATOCRIT 49.8 % (38.2-49.6); HEMOGLOBIN 17.2 g/dL (14.0-18.0); LYMPHOCYTES # (AUTO) 2.2 (1.0-3.2); LYMPHOCYTES % 32.1 % (18.0-39.1); MEAN CORPUSCULAR HEMOGLOBIN 30.6 pg (28-32); MEAN CORPUSCULAR HGB CONC 34.5 g/dL (31-35); MEAN CORPUSCULAR VOLUME 88.6 fL (81-99); MONOCYTES # (AUTO) 0.4 (0.2-0.8); MONOCYTES % 5.6 % (4.4-11.3); NEUTROPHILS # (AUTO) 4.2 (2.1-6.9); NEUTROPHILS % 60.4 % (38.7-80.0); PLATELET COUNT 111 x10e3/uL (140-360); RED BLOOD COUNT 5.62 x10e6/uL (4.3-5.7); RED CELL DISTRIBUTION WIDTH 12.9 % (11.7-14.4)
[2018-12-27 13:02] LABS: INR 0.87; PROTHROMBIN TIME 12.6 seconds (11.9-14.5)
[2018-12-27 13:03] LABS: PARTIAL THROMBOPLASTIN TIME 33.3 seconds (23.8-35.5)
[2018-12-27 13:10] LABS: ALANINE AMINOTRANSFERASE 18 IU/L (0-55); ALBUMIN 3.5 g/dL (3.5-5.0); ALBUMIN/GLOBULIN RATIO 1.1 (0.8-2.0); ALKALINE PHOSPHATASE 58 IU/L (40-150); ANION GAP 16.1 mmol/L (8-16); BLOOD UREA NITROGEN 13 mg/dL (7-26); BUN/CREATININE RATIO 16 (6-25); CALCIUM 8.9 mg/dL (8.4-10.2); CARBON DIOXIDE 20 mmol/L (22-29); CHLORIDE 105 mmol/L (98-107); CREATINE KINASE 70 IU/L (30-200); CREATININE, SERUM 0.82 mg/dL (0.72-1.25); EST GLOMERULAR FILTRATION RATE > 60 ML/MIN (60-); GLUCOSE 244 mg/dL (74-118); MAGNESIUM 2.7 MG/DL (1.3-2.1); POTASSIUM 4.1 mmol/L (3.5-5.1); SODIUM 137 mmol/L (136-145)
[2018-12-27] MEDS ORDERED: ONDANSETRON HCL INJ 2MG/ML 2ML 2 MG/ML VIAL IV PRN (13:30)
--- NOTE | 2018-12-27 15:42 | Consultation ---
DATE OF CONSULTATION: December 27, 2018 CARDIOLOGY CONSULTATION REQUESTING PHYSICIAN: Dr. Burrell. REASON FOR CONSULTATION: Chest pain. HISTORY OF PRESENT ILLNESS: This is a 63-year-old man with history of coronary artery disease status post CABG, chronic systolic heart failure status post AICD, peripheral arterial disease, hypertension, hyperlipidemia, abdominal aortic aneurysm, and emphysema, who presents with complaints of chest pain. The patient reports he developed sharp pain in his left chest last night. He describes the pain as 8/10 in severity. It was associated with diaphoresis and radiated to the shoulder and left arm. There was no nausea or shortness of breath. He reports that the pain was better with raising his arms and resolved with sublingual nitroglycerin. After the pain resolved last night. Though he went to sleep, the pain recurred this morning around 4 a.m. It resolved with sublingual nitroglycerin again, but given its recurrence, he presented to the ER for further evaluation. REVIEW OF SYSTEMS: Negative except for as per HPI. PAST MEDICAL HISTORY 1. Coronary artery disease status post CABG. 2. Peripheral arterial disease. 3. Chronic systolic heart failure status post AICD. 4. Hypertension. 5. Hyperlipidemia. 6. Abdominal aortic aneurysm. 7. Emphysema. PAST SURGICAL HISTORY 1. CABG. 2. Bilateral knee replacement. 3. Cholecystectomy. ALLERGIES: NO KNOWN DRUG ALLERGIES. MEDICATIONS: Please see medication list. SOCIAL HISTORY: He smokes a pack a day for the last 52 years. No alcohol or drugs. FAMILY HISTORY: Noncontributory to current illness. PHYSICAL EXAMINATION VITAL SIGNS: Temperature 98.5 degrees, pulse 60, respiratory rate 18, blood pressure 131/65, oxygen saturation 100%. GENERAL: Awake, well-developed, well-nourished man, in no acute distress. HEENT: Normocephalic, atraumatic. Pupils are equal. No scleral icterus. NECK: Supple. No thyromegaly or cervical lymphadenopathy. No carotid bruit. LUNGS: Clear to auscultation bilaterally. No wheezes or crackles. CARDIOVASCULAR: Normal rate, regular rhythm. No murmur. Normal S1 and S2. ABDOMEN: Soft. Nontender. EXTREMITIES: No edema. NEURO: Nonfocal exam. LABS: WBC 6.91, hemoglobin 17.2, hematocrit 49.8, platelets 111. Sodium 137, potassium 4.1, chloride 105, CO2 20, BUN 13, creatinine 0.82. Hemoglobin A1c 7.2. AST 19, ALT 18. Troponin 0.097. TELEMETRY: AV sequential pacemaker. CHEST X-RAY: No acute cardiopulmonary abnormality. IMPRESSIONS 1. Unstable angina. 2. Coronary artery disease status post coronary artery bypass graft. 3. Chronic systolic heart failure, status post automatic implantable cardioverter-defibrillator. 4. Peripheral arterial disease and abdominal aortic aneurysm. 5. Hypertension. 6. Hyperlipidemia. 7. Emphysema. RECOMMENDATIONS: Check cardiac enzymes to rule out myocardial infarction. Patient's last stress test was done January of 2018 with large inferior lateral transmural scar but no evidence of ischemia. Patient's last cardiac catheterization was performed in 2014 which demonstrated patent GARCIA to D1 as well as patent SVG to OM and patent SVG to RPDA. There was 100% in-stent restenosis of the proximal RCA with a patent stent in the left main. Of note, there was 80% stenosis in the mid LAD status post PCI. Trend cardiac enzymes. If patient rules out for a myocardial infarction, will proceed with nuclear stress test in the morning. If patient rules in, we will plan for coronary angiogram. Continue current cardiac medications otherwise. Adjust antianginal therapy as blood pressure permits. Thank you for this consult. We will continue to follow. Job#: [id number] GRACE RODRIGUES
--- NOTE | 2018-12-27 17:35 | NUR ---
patient arrived in wheelchair from ER, patient alert and oriented and in no distress.
[2018-12-27 17:47] VITALS: BP 127/82
[2018-12-27 18:12] VITALS: BP 127/82
[2018-12-27 18:33] VITALS: BP 127/82
--- NOTE | 2018-12-27 19:15 | NUR ---
rounded with mini shifter nurse, patient aware of change. Call sahu within reach and bed in lowest position.
--- NOTE | 2018-12-27 19:27 | NUR ---
report received and walking rounds complete. pt resting in bed and in no apparent distress.
[2018-12-27 20:00] VITALS: BP 127/82
[2018-12-27 20:15] VITALS: BP 137/76
[2018-12-27 21:20] LABS: CREATINE KINASE MB 1.3 ng/mL (0-5.0)
[2018-12-27] MEDS: ATORVASTATIN 20 MG TAB PO SCH (21:55)
[2018-12-27 23:50] VITALS: BP 143/75
[2018-12-28] VITALS (11 sets, daily range): BP systolic 122–159; BP diastolic 67–92
[2018-12-28 05:46] LABS: BASOPHILS # (AUTO) 0.1 (0.0-0.1); BASOPHILS % 0.7 % (0.0-1.0); EOSINOPHILS # (AUTO) 0.1 (0.0-0.4); HEMATOCRIT 52.2 % (38.2-49.6); HEMOGLOBIN 17.3 g/dL (14.0-18.0); LYMPHOCYTES # (AUTO) 2.1 (1.0-3.2); LYMPHOCYTES % 31.1 % (18.0-39.1); MEAN CORPUSCULAR HEMOGLOBIN 30.2 pg (28-32); MEAN CORPUSCULAR HGB CONC 33.1 g/dL (31-35); MEAN CORPUSCULAR VOLUME 91.1 fL (81-99); MONOCYTES # (AUTO) 0.6 (0.2-0.8); NEUTROPHILS # (AUTO) 3.9 (2.1-6.9); NEUTROPHILS % 57.6 % (38.7-80.0); PLATELET COUNT 123 x10e3/uL (140-360); RED BLOOD COUNT 5.73 x10e6/uL (4.3-5.7); RED CELL DISTRIBUTION WIDTH 12.8 % (11.7-14.4)
[2018-12-28 06:16] LABS: CREATINE KINASE MB 1.4 ng/mL (0-5.0)
[2018-12-28 06:48] LABS: ANION GAP 14.5 mmol/L (8-16); BLOOD UREA NITROGEN 12 mg/dL (7-26); BUN/CREATININE RATIO 15 (6-25); CARBON DIOXIDE 22 mmol/L (22-29); CHLORIDE 105 mmol/L (98-107); CHOL/HDL RATIO 6.2 (3.9-4.7); CHOLESTEROL 174 MD/DL (0-199); CREATININE, SERUM 0.79 mg/dL (0.72-1.25); EST GLOMERULAR FILTRATION RATE > 60 ML/MIN (60-); GLUCOSE 149 mg/dL (74-118); HDL CHOLESTEROL 28 MG/DL (40-60); LDL CHOLESTEROL 106 MG/DL (60-130); POTASSIUM 4.5 mmol/L (3.5-5.1); SODIUM 137 mmol/L (136-145); TRIGLYCERIDES 198 MG/DL (0-149)
--- NOTE | 2018-12-28 07:25 | NUR ---
report given and walking rounds complete. pt resting and in no apparent distress.
[2018-12-28] MEDS: ESCITALOPRAM OXALATE 10 MG TAB PO SCH (08:48)
[2018-12-28] MEDS: BUPROPION HCL 150 MG TABCR PO SCH (08:48)
[2018-12-28] MEDS: PRASUGREL 10 MG TAB PO SCH (08:48)
[2018-12-28] MEDS: ASPIRIN 325 MG TAB PO SCH (08:48)
[2018-12-28] MEDS: RAMIPRIL 2.5 MG CAP PO SCH (08:48)
[2018-12-28] MEDS ORDERED: BUPROPION HCL SR 150 MG TAB PO SCH (09:00)
[2018-12-28] MEDS ORDERED: NON-FORMULARY MEDICATION (Escitalopram Oxalate (Lexapro) 20 MG) PO SCH (09:00)
[2018-12-28] MEDS ORDERED: ASPIRIN 325 MG PO SCH (09:00)
[2018-12-28] MEDS ORDERED: METOPROLOL SUCCINATE 25 MG TAB XL PO SCH (09:00)
--- NOTE | 2018-12-28 11:37 | NUR ---
patient being escorted to nuclear medicine for stress test via wheelchair. Alert an oriented and in no distress.
--- NOTE | 2018-12-28 13:03 | NUR ---
patient arrived back to floor via wheelchair, alert and oriented and in no distress.
--- NOTE | 2018-12-28 13:18 | NUR ---
SOCIAL WORK INITIAL ASSESSMENT Gettering Operator to bedside to discuss plan of care with patient/family. CM/SW role and care transitions discussed. Anticipated discharge plan discussed along with duration of care. CM/SW discussed patients right to make decisions in care. CM/SW work hours given. Patient lives: IN APARTMENT WITH SON Admit/Transfer: VIA ED POA/Emergency contact: DACIA BRUNER [phone] Current/Previous Home Health: NONE PCP/Follow-up Care: [facility] Current/Previous DME: [facility] Other Services: NONE Employment Status: ON [employer] DISABILITY FROM JOB Areas of Concerns: NONE Referral Needs: NONE Education Needs: NONE IMM/CARMONA given and signed (if applicable): NA Goal for discharge: RETURN HOME CM/SW left business card at the bedside with contact information. Name and number was also written on the patients whiteboard. Patient verbalized understanding of discussion. CM will follow-up with ongoing discharge and transition of care needs.
--- NOTE | 2018-12-28 13:20 | NUR ---
POST DISCHARGE STATUS FORM FILED IN CHART TO RETURN HOME NO NEEDS
--- NOTE | 2018-12-28 15:20 | NUR ---
Patient off unit to laborer cutting tool
[2018-12-28] MEDS ORDERED: NITROGLYCERIN/D5W 200 MCG/ML 250 ML ONE (16:22)
[2018-12-28] MEDS ORDERED: LIDOCAINE HCL 1% LOCAL INJ 20 ML VIAL ONE (16:22)
[2018-12-28] MEDS ORDERED: HEPARIN SOD (PORCINE) 1000 UNIT/ML 30ML ONE (16:22)
[2018-12-28] MEDS ORDERED: VERAPAMIL HCL 2.5 MG/ML 2 ML VIAL ONE (16:37)
[2018-12-28] MEDS ORDERED: TICAGRELOR 90 MG TABLET ONE (16:42)
[2018-12-28] MEDS ORDERED: ASPIRIN 325 MG TAB ONE (16:42)
[2018-12-28] MEDS ORDERED: MIDAZOLAM HCL 2 MG/2 ML VIAL ONE ×2 (16:44→17:05)
[2018-12-28] MEDS ORDERED: IOPAMIDOL 370 MG/ML 200 ML INFUS..BTL INJ ONE (16:47)
--- NOTE | 2018-12-28 16:52 | Progress Note ---
DATE: 12/28/2018 Cardiology Progress Note SUBJECTIVE: The patient denies chest pain or shortness of breath. OBJECTIVE: VITAL SIGNS: Temperature 96.8 degrees, pulse 58, respiratory rate 14, blood pressure 146/84, and oxygen saturation 96% on room air. GENERAL: Awake, alert, in no acute distress. LUNGS: Clear to auscultation bilaterally. No wheezes or crackles. CARDIOVASCULAR: Normal rate. Regular rhythm. No murmur. Normal S1 and S2. ABDOMEN: Soft. Nontender. EXTREMITIES: No edema. CARDIAC MEDICATIONS: Aspirin 325 mg p.o. daily, ramipril 2.5 mg p.o. daily, prasugrel 10 mg p.o. daily, atorvastatin 40 mg p.o. at bedtime, and metoprolol succinate 25 mg p.o. daily. LABORATORY DATA: WBC is 6.76, hemoglobin 17.3, hematocrit 52.2, and platelets 123. Sodium 137, potassium 4.5, chloride 105, CO2 of 22, BUN 12, and creatinine 0.79. Troponin 0.103. Cholesterol 174, triglycerides 198, LDL 106, and HDL 28. Telemetry, AV paced. IMPRESSION: 1. Unstable angina. 2. Coronary artery disease, status post coronary artery bypass graft. 3. Chronic systolic heart failure, status post automatic implantable cardioverter-defibrillator. 4. Peripheral arterial disease. 5. Abdominal aortic aneurysm. 6. Hypertension. 7. Hyperlipidemia. 8. Emphysema. RECOMMENDATIONS: The patient ruled out for myocardial infarction with serial cardiac biomarkers. Unfortunately, the patient had caffeine this morning. Attempt was made at exercise treadmill nuclear stress test, but the patient was unable to achieve target heart rate due to limitations from his prior bilateral knee replacements. Plan to proceed with cardiac catheterization to evaluate coronary anatomy. Last cath was in 2014 with patent GARCIA to D1 as well as patent SVG to OM and SVG to RPDA. Increase antianginal therapies. We will titrate up metoprolol succinate. Continue current cardiac medications otherwise. Thank you for this consult. We will continue to follow. Birgit Guerra MD ABS/MODL /[id number]
[2018-12-28] MEDS ORDERED: FENTANYL CITRATE/PF 100MCG/2 ML INJ ONE (17:05)
--- NOTE | 2018-12-28 17:35 | NUR ---
Continue care to post procedure area. review of procedural findings and medications given. Patient drowsy, easily aroused. maintains airway and room air saturations of 94-96%. No gross issues of pressure, pain, pallor or dysrhythmia. IV site patent with NS 0.9% at 50ml/hr gravity. patient hemodynamically stable with hemostasis to right groin dressing CDI w/o s/s of bleeding. patient transferred to bed with max assist w/o incident. transported to [facility] holding awaiting [place] [place] [facility]: SVG stent and thrombectomy Sheath puller: Faustino CATHERINE Mynx 6/7fr Meds Given Intra-Procedure Sedatives Versed - 4 mg Fentanyl - 150 mcg Anticoagulants Heparin - 10,000 Units Fluids Input - 350 ml Output - none Contrast Isovue 370 - 180 Other Meds {Brilinta}180mg {ASA}325mg Verapamil IC 2mg by Nitro IC 200mcg by
--- NOTE | 2018-12-28 19:30 | NUR ---
telepone report given to Aby LOZADA. Alert oriented and appropriate, PERRLA, respirations even and unlabored to room air. Pulses x4 extremities equal and strong. Pedal pulses PT/DP palpable. Cap fill brisk < 3 sec. Skin warm and dry integrity appears intact . IV 20g to right cameron presents healthy w/o s/s of infiltration or complaint. Abdomen soft and supple. pt offered toileting, denies need to urinate or defecate. No personal affects with patient. Family not available. Pt verbalizes understanding of POC. . Patient transferred from [facility] to [facility] 198 by wood preserving plant laborer escort on bed, [employer] monitoring.-cgf
--- NOTE | 2018-12-28 20:10 | NUR ---
PATIENT RECEIVED FROM INFORMATION SECURITY ASSOCIATE PER BED AT 1928. HE'S ALERT AND ORIENTED X4, NO RESPIRATORY DISTRESS OBSERVED AND HE C/O PAIN TO THE BACK. PRESSURE DRESSING DRY AND INTACT TO THE RIGHT GROIN WITHOUT BLEEDING OR HEMATOMA, EDUCATED TO MAINTAIN BEDREST AT ORDERED. CALL LIGHT AND URINAL WITHIN EASY REACH, PATIENT VOIDED IN THE URINAL CLEAR YELLOW COLOR URINE. WILL CONTINUE TO CLOSELY MONITOR THE RIGHT GROIN.
[2018-12-28] MEDS: ATORVASTATIN 20 MG TAB PO SCH (21:40)
--- NOTE | 2018-12-28 21:47 | NUR ---
PRESSURE DRESSING DRY AND INTACT TO THE RIGHT GROIN WITHOUT BLEEDING OR HEMATOMA, PATIENT SITTING UP AT THE SIDE OF THE BED. HE C/O NECK AND BACK PAIN, NO PAIN MEDICATION ON FILE FOR THIS PATIENT. CALL PLACED OUT TO ATTENDING PHYSICIAN REGARDING PAIN MANAGEMENT, AWAITING CALL BACK FROM THE DOCTOR.
[2018-12-28] MEDS: TRAMADOL HCL 50 MG TAB PO PRN (22:30)
--- NOTE | 2018-12-29 01:55 | NUR ---
PATIENT IS SOUNDLY ASLEEP, HE'S EASY TO AROUSE. C-PAP ON, HE DENIES PAIN. PRESSURE DRESSING DRY AND INTACT TO THE RIGHT GROIN WITHOUT BLEEDING OR HEMATOMA. CALL LIGHT AND URINAL WITHIN EASY REACH, INSTRUCTED TO CALL FOR ASSISTANCE NEEDED.
[2018-12-29] MEDS: TRAMADOL HCL 50 MG TAB PO PRN (03:57)
[2018-12-29 03:58] VITALS: BP 165/99
--- NOTE | 2018-12-29 03:59 | NUR ---
PATIENT C/O PAIN TO THE LOWER BACK WITH PAIN SCORE #4, MEDICATED WITH TRAMADOL ORDERED. HE'S USING THE RESTROOM AT THIS TIME, HE'S INSTRUCTED TO CALL FOR ASSISTANCE NEEDED. PRESSURE DRESSING DRY AND INTACT TO THE RIGHT GROIN WITHOUT BLEEDING OR HEMATOMA, SMALL BRUISE NOTED AT THE SITE.
[2018-12-29 08:00] VITALS: BP 148/95
[2018-12-29] MEDS: ASPIRIN 325 MG TAB PO SCH (08:23)
[2018-12-29] MEDS: RAMIPRIL 2.5 MG CAP PO SCH (08:23)
[2018-12-29] MEDS: ESCITALOPRAM OXALATE 10 MG TAB PO SCH (08:23)
[2018-12-29] MEDS: PRASUGREL 10 MG TAB PO SCH (08:23)
[2018-12-29] MEDS: BUPROPION HCL 150 MG TABCR PO SCH (08:24)
[2018-12-29] MEDS ORDERED: METOPROLOL SUCCINATE 25 MG TAB XL PO SCH (09:00)
[2018-12-29 12:00] VITALS: BP 139/82
[2018-12-29] MEDS ORDERED: BRILINTA90 MG (12:29)
[2018-12-29] MEDS ORDERED: RAMIPRIL5 MG PO (12:29)
--- NOTE | 2018-12-29 12:46 | NUR ---
SPOKE WITH RECEIVED ORDERS FOR MEDICATION CHANGES. PT MADE AWARE TO STOP CURRENT MEDICATION STARTED ON BRILINTA AND INCREASED RAMIPRIL TO 5MG. MEDICATIONS SENT TO PHARMACY, PT UNDERSTOOD THAT IF HE WAS UNABLE TO FILL MEDICATION HE WAS TO CALL OFFICE PER . IV DC'D SECURED WITH 4X4 GAUZE AND TAPE. RX GIVEN EDUCATION AND F/U INSTRUCTIONS.
--- NOTE | 2018-12-29 15:09 | Progress Note ---
DATE: 12/29/2018 Cardiology Progress Note SUBJECTIVE: The patient denies chest pain or shortness of breath. Due to inability to achieve target heart rate during exercise treadmill stress test, the patient was taken to the cardiac catheterization laboratory yesterday with finding of 90% stenosis in the SVG to OM graft. He underwent successful PCI. OBJECTIVE: VITAL SIGNS: Temperature 98.5 degrees, pulse 63, respiratory rate 20, blood pressure 140/95, oxygen saturation 96% on room air. GENERAL: Obese gentleman, awake and alert, in no acute distress. LUNGS: Clear to auscultation bilaterally. No wheezes or crackles. CARDIOVASCULAR: Normal rate. Regular rhythm. No murmur. Normal S1 and S2. ABDOMEN: Soft, nontender. EXTREMITIES: No edema. Right groin without hematoma or bruit. CARDIAC MEDICATIONS: Metoprolol succinate 50 mg p.o. daily, aspirin 325 mg p.o. daily, ramipril 2.5 mg p.o. daily, prasugrel 10 mg p.o. daily, atorvastatin 40 mg p.o. at bedtime. LABORATORY DATA: None today. Telemetry, AV sequential pacing. IMPRESSION: 1. Unstable angina. 2. Coronary artery disease, status post coronary artery bypass graft and prior stents. 3. Chronic systolic heart failure, status post automatic implantable cardioverter-defibrillator. 4. Peripheral arterial disease. 5. Abdominal aortic aneurysm. 6. Hypertension. 7. Hyperlipidemia. 8. Emphysema. 9. Tobacco use. RECOMMENDATIONS: The patient ruled out for myocardial infarction with serial cardiac biomarkers. He underwent cardiac catheterization yesterday with finding of 90% stenosis in the SVG to OM graft for which he underwent PCI. The patient was counseled on the importance of dual antiplatelet therapy. We will titrate up his beta blockers and his ramipril as his blood pressure was not well controlled. Continue current cardiac medications. Otherwise, the patient would need to follow up in the office in 2 weeks. Thank you for this consult. We will continue to follow. Birgit Guerra MD ABS/MODL /[id number]
[2018-12-30] MEDS ORDERED: METOPROLOL SUCCINATE 25 MG TAB XL PO SCH (09:00)
[2018-12-30] MEDS ORDERED: RAMIPRIL 2.5 MG CAP PO SCH (09:00)
--- NOTE | 2018-12-30 14:01 | EXERCISE STRESS TEST ---
DATE OF STUDY: 12/28/2018 10:33:00 REPORT DULCE: Rest single-isotope SPECT imaging with exercise stress. INDICATIONS: Chest pain. PROCEDURE: The patient performed treadmill exercise using a Romulo protocol exercising for 3:36 minutes to stage 2. Test was terminated due to inability to achieve target heart rate. The heart rate was 82 beats per minute at rest and increased to 102 beats per minute at peak exercise. The rest blood pressure was 109/74 and increased to 112/76 mmHg, which is a normal response. The resting electrocardiogram demonstrated normal sinus rhythm with ventricular paced rhythm. There were no ST-segment changes suggestive of myocardial ischemia. Myocardial perfusion imaging was performed at rest following injection of 11 mCi of tetrofosmin. Due to inability to achieve target heart rate, stress dose was not injected and gated post-stress tomographic imaging was not performed. FINDINGS: Overall quality of the study is fair. Left ventricular cavity is noted to be enlarged on the rest studies. There is a large, severe inferolateral perfusion defect on rest imaging. IMPRESSION: 1. Myocardial perfusion imaging is abnormal. There is a large transmural scar in the inferolateral wall. 2. Inconclusive exercise treadmill stress test due to inability to achieve target heart rate. Birgit Guerra MD ABS/MODL /[id number]
--- NOTE | 2019-02-16 15:50 | Operative Report ---
DATE OF PROCEDURE: 12/27/2018 SURGEON: Donnie Miguel MD CARDIAC CATHETERIZATION REPORT INDICATION FOR PROCEDURES: Non-ST elevation DE. PREPROCEDURE ASSESSMENT: The patient's medical history social history, and prior experience with anesthesia were reviewed prior to the procedure. The patient was deemed to be an appropriate candidate for moderate sedation. The risks, benefits, and alternatives of the procedure were explained to the patient prior to the procedure. An informed consent was documented in the medical record. MEDICATIONS: Please see nursing notes for medications administered during the procedure. PROCEDURES PERFORMED: 1. Coronary angiography. 2. Bypass graft angiography. 3. Left heart catheterization. 4. Percutaneous coronary intervention of SVG to OM with drug-eluting stent x1. PROCEDURE DETAILS: The patient was brought to the cardiac catheterization laboratory in a fasting state. Right groin was prepped and draped in a sterile fashion. Access of the right common femoral artery was obtained using modified Seldinger technique. Coronary angiography and bypass graft angiography were performed using JL4, JR4, AR1 and EDWARDO catheters to engage the left main, RCA, SVG to RCA and SVG to OM, and GARCIA to LAD respectively. Left heart catheterization was performed using JR4 diagnostic catheter. Coronary and bypass graft angiography were significant for following findings: 1. Left main coronary artery: Large caliber, no significant CAD. 2. LAD: Large vessel, goes of apex, patent proximal and mid LAD stents. GARCIA is attached to diagonal one. There is 70% to 80% plaque in the ostium of diagonal one, which is a very large vessel with a small aneurysmal segment near the anastomosis site of diagonal one and GARCIA. 3. Left circumflex: Nondominant vessel. One large OM branch, [employer] at the ostium, fills via SVG to OM. 4. RCA: Large vessel, 100% [employer] in the midportion. Distal RCA fills via SVG to RCA. 5. Bypass grafts. SVG to RCA widely patent. SVG to OM, there is a 90% thrombotic lesion in the midportion with FACUNDO-1 flow. GARCIA to diagonal is widely patent, small aneurysm at the anastomotic site. Based on these findings, we then decided to proceed with PCI of SVG to OM graft. For PCI to SVG to OM graft, we attempted to place a filter wire; however, given the tightness of the lesion, we were unable to cross with the filter wire. We then proceeded with wiring with run-through wire, then performed thrombectomy with Pronto catheter. This resulted in improvement in flow to FACUNDO-2. We then proceeded with PCI with Synergy 3.0 x 24 mm drug-eluting stent. This resulted in an excellent angiographic outcome with no residual dissection, thrombus, or spasm and FACUNDO-3 flow. Access site was then closed using a Mynx vascular closure device. There were no immediate complications. COMPLICATIONS: None. ESTIMATED BLOOD LOSS: 50 mL. GRAFTS AND IMPLANTS: Mynx vascular closure, Synergy 3.0 x 24 mm drug-eluting stent. FINAL RECOMMENDATIONS: 1. Aspirin and Brilinta for at least one year, preferably longer. 2. Optimal medical therapy and risk factor control. 3. Follow up in clinic 2 weeks post discharge. MD MINESH Gramajo/BRIAN /[id number]
--- NOTE | 2019-02-18 03:19 | Discharge Summary ---
CHIEF COMPLAINT: Chest pain. FINAL DIAGNOSES: Chest pain, coronary artery disease, diabetes type 2. DISPOSITION: The patient discharged home. HOSPITAL COURSE: A 63-year-old male known with history of coronary artery disease, hypertension, diabetes type 2, and GERD, brought to the ER with 1-day history of mid chest pain radiating to the left shoulder and arm and neck, relieved with nitroglycerin sublingual one tablet. No nausea or vomiting. There was some issues of clamminess. No fever or chills. The patient is status post CABG. He was reviewed and evaluated in the emergency room, admission was made for evaluation regarding chest pain, coronary artery disease without new cardiac ischemia, diabetes type 2, hypertension. We will be monitoring cardiac enzymes. Home medications will continue. Request Cardiology follow. With admission, the patient did undergo the cardiology follow for the chest pain with Dr. Guerra and her impression revealed unstable angina, coronary artery disease status post CABG, chronic systolic heart failure, status post defibrillator, peripheral arterial disease and abdominal aortic aneurysm, hypertension, hyperlipidemia, emphysema. We will continue to check cardiac enzymes and rule out GA. The patient's last stress test was in January of last year showing a large inferolateral transmural scar, but no evidence of ischemia. Last catheterization was in 2014, which demonstrated a patent GARCIA to D1, patent SVG to OM, and patent SVG to the RPDA, 100% in-stent restenosis of the proximal right coronary artery with a patent stent in the left main. There was also noted 80% stenosis in the mid left anterior descending, status post PCI. She states that if the patient is ruled out for GA, we will proceed with nuclear stress testing. If the patient rules in, we will be planning a catheterization. The patient did undergo cardiac cath on 12/[address] Simone Miguel. Procedure was coronary angiography, bypass graft angiography, left heart catheterization, PCTI of saphenous vein graft to the OM with a drug-eluting stent x1. There were no complications, 50 mL estimated blood loss. With completion, the patient will be on aspirin and Brilinta for least one year, preferably longer, optimal medical therapy and risk factor control. Prior to the catheterization, the patient's nuclear stress test shows the myocardial perfusion imaging to be abnormal. There was a large transmural scar in the inferolateral wall. Inconclusive exercise treadmill stress test due to inability to achieve target heart rate. From the ER, the patient was placed in [facility], was on a cardiac diet, was resting comfortably and is in no acute distress. We started on IV fluids, was given medications for pain, nitroglycerin sublingual q.5 minutes x3 was also being given to the patient and the medications were also continued. Lab studies are being closely watched. The stress underwent PCI, did well with the procedure. Postop was uneventful. Once stabilized postop, the patient will be able to be discharged home, released 12/29/2018 in stable condition. Chest x-ray shows . LABORATORY STUDIES: Shows a CBC to be unremarkable. Coagulation studies were revealing an INR of 0.87. Chemistries shows initial sodium of 137, potassium 4.1, BUN and creatinine stable. Glucose 244. Cardiac enzymes normal. Hemoglobin A1c was noted to be at 7.2%. Three sets of cardiac enzymes were normal. As stated, the patient responded well, discharged home. With discharge, the patient will continue with his primary care physician over the next 7 to 10 days. No equipments or supplies are necessary. No drains or Dai was needed. Activity level as directed by myself as well as by Cardiology. He will be returning back to Cardiology in 2 to 3 weeks for followup cardiac review. We will maintain cardiac diet. The patient will be on aspirin 325 daily, Atorvastatin, calcium 40 mg p.o. h.s., bupropion 150 mg daily, Lexapro 20 mg daily, metoprolol succinate 25 mg daily, ramipril 5 mg daily, Brilinta 90 mg daily. If the chest pains were to reoccur, lightheadedness, dizziness, or diaphoresis, the patient will be contacting his PCP since possible. Dictated by CONNOR Guzman Preston Yoder MD CC/MODL /[id number]
== END 2018-12-29 12:42 | disposition home or self-care (01) ==
LOC: ER 11:24 → ERHOLD 13:34 → IMCU 17:35
DX: I25.700 Atherosclerosis of coronary artery bypass graft(s), unspecified, with unstable angina pectoris (principal); I11.0 Hypertensive heart disease with heart failure; I50.22 Chronic systolic (congestive) heart failure; I71.4 Abdominal aortic aneurysm, without rupture; I73.9 Peripheral vascular disease, unspecified; E78.5 Hyperlipidemia, unspecified; Z95.810 Presence of automatic (implantable) cardiac defibrillator; Z95.1 Presence of aortocoronary bypass graft; Z86.718 Personal history of other venous thrombosis and embolism; J43.9 Emphysema, unspecified; E11.9 Type 2 diabetes mellitus without complications; K21.9 Gastro-esophageal reflux disease without esophagitis; F17.210 Nicotine dependence, cigarettes, uncomplicated; Z79.82 Long term (current) use of aspirin; Z95.5 Presence of coronary angioplasty implant and graft; Z86.711 Personal history of pulmonary embolism; Z96.653 Presence of artificial knee joint, bilateral
CPT/HCPCS: 36415 ×2; 71045; 78451; 80048; 80053; 80061; 82550 ×2; 82553 ×2; 83036 ×2; 83735; 84484 ×2; 85025 ×2; 85610; 85730; 92937; 92973; 93005; 93017; 93455; 94660; 99284; A9502; C1760; C1769; C1874; G0378 ×3; J1644; J2001; J2250; Q9967; 92928

== ENCOUNTER → 2023-03-13 | Outpatient (CLI) | payer MEDICARE ==
[~2023-03-13] MED LIST changes: +BRILINTA90 MG; +RAMIPRIL5 MG PO
== END ==
LOC: CT 08:54
PROVIDERS: ATTEND Family Medicine
DX: J43.1 Panlobular emphysema (principal)
CPT/HCPCS: 71250